=== PATIENT | male | born 1960 | race Caucasian/White ===

== ENCOUNTER 2025-02-15 19:07 | Inpatient (IN) | payer OTHER, SELFPAY ==
[2025-02-15] VITALS (7 sets, daily range): BP systolic 102–160; BP diastolic 68–91; BMI 28.3
--- NOTE | 2025-02-15 16:27 | ED.GENMED ---
History of Present Illness
General
Chief Complaint: Chest Pain
Time Seen by Provider: 02/15/25 16:16
History of Present Illness
History of Present Illness:
FOCUSED PAST MEDICAL HISTORY
- Diabetes
REVIEW OF OLD RECORDS
- The patient was seen here in 2020 with a splinter
Note:
CHIEF COMPLAINT(S)
Chest pain.
HISTORY OF PRESENT ILLNESS
The patient is a 64-year-old male who presents with chest pain that began around 10:00 AM today. He describes the sensation as feeling like 'someone is sitting on' his chest. The chest pain has been continuous since its onset. He reports associated
pain in the back of his shoulder but denies previous episodes related to cardiac issues. He did not take aspirin at home but did take Tylenol. The patient is being assessed for a potential myocardial infarction, as indicated by findings on the
electrocardiogram. The ripening room hand has been notified. The patient did take an antacid but remains symptomatic at the time of evaluation.
PAST MEDICAL AND SURGICAL HISTORY
The patient reports a past surgical history of diverticulitis resulting in the resection of 12 inches of colon. The patient denies a history of hypertension or hypercholesterolemia. He acknowledges having a previous allergy to topical iodine used
during surgical preparations, which resulted in a rash on his back and chest.
CHRONIC MEDICAL CONDITIONS SIGNIFICANTLY AFFECTING CARE
The patient reports having type 2 diabetes mellitus.
ALLERGIES
The patient is allergic to topical iodine, which caused a rash on his back and chest.
FAMILY HISTORY
The patients mother had renal dialysis and but had no history of heart problems. The patients father had cancer, but there is no family history of heart problems noted.
MEDICATIONS
The patient took Tylenol at home and has been given aspirin in the emergency department.
REVIEW OF SYSTEMS
- Chest: Reports chest pain described as feeling like 'someone is sitting on' his chest.
- Gastrointestinal: Denies past issues requiring medication for hypertension or hypercholesterolemia.
- Skin: Past allergic reaction to topical iodine resulting in a rash on back and chest.
PHYSICAL EXAM
General: Alert, no acute distress. Appears fairly comfortable
Skin: Warm, dry.
Head: Normocephalic, atraumatic.
Neck: Supple, trachea midline.
Eyes, Ears, Nose, Mouth, and Throat: Oral mucosa moist.
Cardiovascular: Normal peripheral perfusion, No edema.
Respiratory: Respirations are non-labored.
Gastrointestinal: Abdomen nondistended.
Back: Normal range of motion, Normal alignment.
Musculoskeletal: Normal range of motion, normal strength.
Neurological: Alert and oriented to person, place, time, and situation. No focal neurological deficit observed.
Psychiatric: Cooperative, appropriate mood & affect.
PLAN
The patient is placed on aspirin therapy for suspected myocardial infarction and is awaiting evaluation by the cardiology team for further management in the catheterization laboratory. Continuous monitoring and preparation for possible intervention
are underway.
DIFFERENTIAL DIAGNOSIS
The Differential Diagnosis includes, in no particular order and is not limited to:
1. Myocardial infarction
2. Angina pectoris
3. Aortic dissection
4. Pulmonary embolism
5. Costochondritis
6. Gastroesophageal reflux disease
7. Pericarditis
8. Thoracic aortic aneurysm
9. Pneumothorax
10. Musculoskeletal pain
Disposition:
SUMMARY OF ENCOUNTER
The patient, a 64-year-old male, presents with chest pain characterized as a sensation of someone sitting on his chest, starting earlier the same day. The pain is continuous and associated with shoulder discomfort. The emergency department
assessment included consideration of a myocardial infarction given electrocardiographic findings. The cardiology team has been notified, and a ripening room hand is en route for further evaluation, possibly in the catheterization lab. The patient remains
symptomatic despite taking Tylenol.
ASSESSMENT
Acute anterior ST elevation myocardial infarction suspected.
EMERGENCY TREATMENTS ADMINISTERED
Aspirin
MANAGEMENT OF THE PATIENTS CARE WAS DISCUSSED WITH
The ripening room hand Dr. Jenkins is coordinating management for possible intervention in the catheterization laboratory.
PLAN
Continue aspirin therapy and prepare for possible intervention in the catheterization laboratory pending cardiology evaluation.
MEDICATION RECONCILIATION
Aspirin was administered in the emergency department.
MEDICAL DECISION MAKING
-Complexity of Data Reviewed: Chronic conditions affecting care include type 2 diabetes mellitus. Differential diagnosis includes myocardial infarction, angina pectoris, aortic dissection, pulmonary embolism, costochondritis, gastroesophageal reflux
disease, pericarditis, thoracic aortic aneurysm, pneumothorax, and musculoskeletal pain.
-Data:
Category 3
Discussion of management with a ripening room hand who is en route for further evaluation.
-Risk:
Consideration of Admission/Observation: Escalation of care including admission/observation was considered given the complexity and risk of the patients presenting complaint, exam findings, and underlying comorbidities.
DIAGNOSIS
Acute anterior ST elevation myocardial infarction (ICD-10: I21.09)
EKG
- Sinus, anterior ST elevation with no reciprocal changes
LABS
- White count 12.5, troponin still pending
UPDATE
- Dr. Jenkins took to the [facility] emergently
Past History
Past History
ED Past Medical History: None
ED Past Surgical History: None
Social History
Tobacco: Non-smoker
Alcohol: None
Phy Exam
Physical Exam
Physical Exam:
See HPI
Scores
Heart Score for Chest Pain Patients
STEMI patient?: Yes
Course
Orders/Labs/Results
Orders:
Orders
02/15/25 15:56
Electrocardiogram (*1) Urgent
Reason for Study: Chest Pain
EKG- Treatment ONCE
02/15/25 16:23
Type+Screen Urgent
Complete Blood Count/With Diff Urgent
Comprehensive Metabolic Panel Urgent
Magnesium Urgent
Protime/PTT Urgent
Troponin I Urgent
Troponin I Urgent
Heparin 5,000 units IV NOW STA
Nitroglycerin Sublingual [Nitrostat (Sublingual)] 0.4 mg SL [id number] PRN
02/15/25 16:30
Nitroglycerin 100 mg/250 ml [Nitroglycerin Premix] 100 mg in 250 ml IV PER PROTOCOL
Initial dose in mcg/min, then titrate:: 5
Titrate to keep:: Chest Pain Free
Titrate by mcg/min:: 5 mcg/min, may increase by 10 mcg/min if dose > 20 mcg/min
Frequency of titrations (minutes):: every 3-5 minutes
Maximum dose in mcg/min:: 200
Begin to taper infusion when:: Remained at goal for 2hrs
Taper by mcg/min:: 5 mcg/min
Frequency of taper (minutes) if patient maintains goal:: 30
Taper to off?: Yes
If infusion off & no longer maintaining goal:: Contact Provider
02/15/25 16:36
Fentanyl Citrate/Pf [Sublimaze] 100 mcg .ROUTE .STK-MED ONE
Heparin 10,000 units .ROUTE .STK-MED ONE
Heparin 1000 Units/500 ml [Heparin] 1,000 units in 500 ml .ROUTE .STK-MED
Heparin Sodium,Porcine/Ns/Pf [Heparin 2000 Units/1000 ml] 2,000 unit in 1,000 ml .ROUTE .STK-MED
Lidocaine HCl/Pf [Xylocaine-Mpf 1% Vial] 100 mg .ROUTE .STK-MED ONE
Midazolam HCl [Versed] 2 mg .ROUTE .STK-MED ONE
Nitroglycerin [Tridil] 1,500 mcg .ROUTE .STK-MED ONE
Verapamil Injectable [Isoptin/Verapamil Injection] 5 mg .ROUTE .STK-MED ONE
02/15/25 16:57
Aspirin Chewable [Low Strength Aspirin] 324 mg .ROUTE .STK-MED ONE
Ticagrelor [Brilinta] 180 mg .ROUTE .STK-MED ONE
02/15/25 17:23
Furosemide [Lasix] 40 mg .ROUTE .STK-MED ONE
02/15/25 17:24
Lidocaine 2% Mpf [Xylocaine Mpf 2%] 100 mg .ROUTE .STK-MED ONE
Lidocaine HCl/Pf [Xylocaine-Mpf 1% Vial] 50 mg .ROUTE .STK-MED ONE
Abnormal Lab Results
02/15/25
16:23
WBC 12.5 H 10^3/uL
(4.8-10.8)
MCH 31.3 H pg
(27.0-31.0)
Absolute Neuts (auto) 9.1 H 10^3/uL
(1.4-6.5)
Absolute Monos (auto) 0.9 H 10^3/uL
(0.1-0.6)
Lymphocytes % 19.5 L %
(20.5-51.1)
Glucose 274 H mg/dl
(70-99)
Total Protein 8.3 H g/dl
(6.3-8.2)
02/15/25 16:23
02/15/25 16:23
Vital Signs
Initial and Last Documented VS:
Initial Vital Signs
Temp Pulse Resp Pulse Ox
37.1 C 90 18 98
02/15/25 16:10 02/15/25 16:10 02/15/25 16:10 02/15/25 16:10
Last Documented Vital Signs
Temp Pulse Resp BP Pulse Ox
37.1 C 90 18 160/91 98
02/15/25 16:10 02/15/25 16:10 02/15/25 16:10 02/15/25 16:14 02/15/25 16:52
*Pulse Oximetry
SaO2: 98
Oxygen Mode of Delivery: Room air
Patient hypoxic: no
*Critical Care Note
Total Time (30-74mins, 75-104mins- exclusive of procedures): Not Applicable
ED Attending Note
-
Portions of this chart may have been created with voice recognition software.� Occasional wrong word or��sound alike� substitutions may have occurred due to the inherent limitations of voice recognition software.
Discharge Plan
Departure
Patient Disposition: Admit
Date of Disposition: 02/15/25
Time of Disposition: 16:26
Presentation/result/management discussed w/ accepting MD/DO: dr jenkins
Discharge Problem:
ST elevation (STEMI) myocardial infarction involving left anterior descending coronary artery
Prescriptions:
No Action
hydrocodone-acetaminophen 1 TABLET tablet
1 tab PO Q4HPRN PRN (Reason: pain) Qty: 10 0RF
Referrals:
UNKNOWN - PT NOT,INTERVIEWE [Unknown Provider]
Interventions
Interventions:
*Risk Screen - Suicide Last Done: 02/15/25 17:02
*General Assessment Last Done: 02/15/25 17:02
*Neglect/Abuse Screening Last Done: 02/15/25 17:02
*ED- Fall Risk Assessment Last Done: 02/15/25 17:02
*ED COVID-19 Vaccine History Last Done: 02/15/25 17:02
*ED Influenza Vaccine History Last Done: 02/15/25 17:02
*Nursing Disposition Last Done: 02/15/25 17:02
ED- Cardiac Assessment Last Done: 02/15/25 16:10
Discharge Date and Time
Discharge Date/Time: 02/15/25 17:04
Print Language: MOROCCAN
[2025-02-15] MEDS: NITROGLYCERIN PREMIX 250 IV (16:31)
[2025-02-15 16:43] LABS: Hematocrit 45.5 % (39.0-52.0); Hemoglobin 16.0 g/dL (13.0-18.0); Mean Corp Hgb Conc. 35.2 g/dL (33.0-37.0); Mean Corpuscular Volume 88.9 fL (80.0-94.0); Nucleated Red Blood Cells % 0 % (-); Platelet Count 237 10^3/uL (130-400); Red Cell Dist. Width 12.4 % (11.5-14.5)
[2025-02-15 16:47] LABS: INR 1.05; PT 14.0 Sec (11.4-14.6)
[2025-02-15 16:48] LABS: APTT 27.8 Sec (23.4-35.0)
[2025-02-15 16:53] LABS: ALT (SGPT) 21 U/L (0-50); AST (SGOT) 40 U/L (17-59); Albumin 4.9 g/dl (3.5-5.0); Alkaline Phosphatase 108 U/L (38-126); Blood Urea Nitrogen 18 mg/dl (9-20); Calcium 10.0 mg/dl (8.4-10.2); Carbon Dioxide 25 mmol/L (22-30); Chloride 99 mmol/L (98-107); Estimated Creatinine Clearance 113 ml/min; Glucose 274 mg/dl (70-99); Magnesium 1.8 mg/dl (1.6-2.3); Potassium 4.8 mmol/L (3.5-5.1); Sodium 135 mmol/L (135-145); Total Protein 8.3 g/dl (6.3-8.2); eGFR > 60.00
[2025-02-15 17:47] LABS: Troponin I 1.400 ng/ml
[2025-02-15 18:00] LABS: ACT-LR - POC 213 Seconds (116-155)
--- NOTE | 2025-02-15 18:15 | CONSULT.CT ---
Consultation
-
Date/Time Consultation Performed: 02/15/251814
Requesting Provider: Amara Barriga MD
Performing Provider: Gildardo De Oliveira PA-C
Reason for Consultation: STEMI, MVCAD, Eval for urgent CABG
Patient History
Physicians
Inpatient Marine Rigger: Amara Barriga MD
History of Present Illness
The patient is a 64 year old male who presented to the emergency department with continuous chest pressure and an acute anterolateral STEMI. He was taken urgently to the cardiac cath technologist by Dr. Barriga for LHC. This revealed multivessel CAD with PICKLER HELPER RCA, LAD
& distal LCX. Medical therapy with heparin, IV nitro and ticagrelor (180 mg load). An IABP was placed. We were called for urgent CABG evaluation.
Past Medical History
Past Medical History: HTN, Hypercholesterolemia and NIDDM
Past Surgical History
Partial colectomy secondary to diverticulitis
Family History
Family Medical History: Other (noncontributory. No known heart disease in his direct family members)
Social History
Alcohol: None
Drug: None
Tobacco: Non-Smoker
Allergies
Allergy/AdvReac Type Severity Reaction Status Date / Time
iodine Allergy Intermediate Itching Verified 02/15/25 16:13
NKA - No Known Allergies Allergy Unknown Uncoded 10/19/20 18:03
Home Medications
�Medication �Instructions �Recorded �Confirmed �Type
hydrocodone 5 mg-acetaminophen 325 1 tab PO Q4HPRN PRN pain #10 tabs 05/27/16 Rx
mg tablet
Review of Systems
-
Unable to obtain full review of systems at this time due to: Acuity
History Source: Patient and Physician
Cardiac: Reports Chest Pain
Physical Exam
Vital Signs
Temp 98.7 F 02/15/25 16:10
Temp route: Oral 02/15/25 16:10
Pulse 90 11/01/25 16:10
Resp Rate 18 02/15/25 16:10
Blood pressure 160/91 02/15/25 16:14
Blood pressure extremity used: Right upper arm 02/15/25 16:10
Position: Sitting 02/15/25 16:10
MAP 112 02/15/25 16:14
SaO2 98 02/15/25 16:52
Oxygen Mode of Delivery Room air 02/15/25 16:52
Actual Weight 102.6 kg 02/15/25 16:10
Body Mass Index (BMI) 28.3 02/15/25 16:10
Labs
PT 14.0 Sec (11.4-14.6) 02/15/25 16:23
APTT 27.8 Sec (23.4-35.0) 02/15/25 16:23
Troponin I 1.400 ng/ml H* 02/15/25 16:23
Troponin I Cancelled 02/15/25 16:23
Troponin I Cancelled 02/15/25 16:23
Exam
General: Well Developed, Well Nourished and Other (in distress on the cardiac cath technologist table)
HEENT: Normocephalic
Rectal: Deferred by Provider
Skin: Warm and Dry
Neuro: Awake, Alert and Oriented
Psych: Calm
Assessment / Plan
-
1. STEMI, MVCAD: the patient will be admitted to CVICU for further management. CABG workup will be done urgently. Due to the ticagrelor load, acute STEMI with significant troponinemia & potential for perioperative complications in the acute setting,
we will attempt to maximize non surgical therapy in an attempt to minimize perioperative risk. The patient was evaluated in tandem with Dr. Fine. STAT Echo, EKG, labs, etc. all ordered. We will provide maximal GDMT for CAD with ASA/high intensity
statin/BB
2. HTN
3. HLD
4. T2DM
5. Hx of partial colectomy/diverticulitis
Note: this note was conducted during urgent cardiac cath technologist evaluation. More extensive physical exam and reconciliation of his chronic medical conditions will be done once he is fully admitted.
Data Reviewed
-
EKG: Report Reviewed by me
General Dentist: Image Personally Visualized and interpreted and Discussed with Physician
Labs: Labs Reviewed by me
Old Records: Reviewed
Total Time Spent with Patient (in minutes): 60
[2025-02-15 18:22] LABS: ACT-LR - POC 250 Seconds (116-155)
--- NOTE | 2025-02-15 19:01 | CON.CAR ---
Addendum entered and electronically signed by Amara Barriga MD 02/16/25 00:39:
Please utilize this note as presenting history and physical.
Home medication noted by patient metformin which she has not been taking for the last 6months
My total direct critical care time was 84 minutes. The time documented was spent providing direct care to this critically ill patient and does not include any time for the procedures. Furthermore in calculating this total time I been careful to
only include the minimum time during which I personally was providing the critical care services listed to this patient. Critical time includes shock management, pressor management, respiratory status management, heart team, family and patient
discussion, ECG and echocardiogram and lab review.
Amara Barriga MD, [facility], [facility]
Original Note:
Consultation
Consultation Request
Date/Time Consultation Requested: 02/15/2025
Date/Time Consultation Performed: 02/15/2025
Requesting Provider: [facility]
Performing Provider: Amara Barriga Md
Reason for Consultation: CP
Medical History
-
Chief Complaint: Chest Pain
History of Present Illness:
Dequan is a 64-year-old gentleman with past medical history of non-insulin dependent type 2 diabetes mellitus, not on any medications for the last 6 months, family history of premature coronary artery disease in his brother, non-smoker with no
follow-up over the last year or recent lab work who presents with sudden onset substernal chest pressure like something is sitting on his chest since about 10 AM. He initially felt like it was indigestion and he tried multiple maneuvers and
stretching with no relief. Eventually asked his landlord to bring him into the hospital in the setting of ongoing chest discomfort with some shortness of breath. In the emergency room the initial ECG was concerning for anterolateral ST elevation
AR for which the heart catheterization team was urgently called. Patient was hypertensive for which he was given 2 sublingual nitroglycerin and started on nitroglycerin drip. He received 325 mg of aspirin, 180 mg of Brilinta and 5000 units of
unfractionated IV heparin.
Past Medical History
Past Medical History: CAD, HTN and NIDDM
Past Surgical History: Bowel Resection and Orthopedic
Social History
Tobacco: Non-Smoker
Alcohol: Occasional
Drug: None
Personal: Single
Living: Alone
Employment: Retired
Family History
Family History: Early CAD
Allergies / Home Medications
Allergy/AdvReac Type Severity Reaction Status Date / Time
iodine Allergy Intermediate Itching Verified 02/15/25 16:13
NKA - No Known Allergies Allergy Unknown Uncoded 10/19/20 18:03
�Medication �Instructions �Recorded �Confirmed �Type
hydrocodone 5 mg-acetaminophen 325 1 tab PO Q4HPRN PRN pain #10 tabs 05/27/16 Rx
mg tablet
Review of Systems
-
All other systems: Negative unless noted
Physical Exam
Vital Signs
Temp Pulse Resp BP Pulse Ox
98.7 F 90 18 160/91 98
02/15/25 16:10 02/15/25 16:10 02/15/25 16:10 02/15/25 16:14 02/15/25 16:52
Lab Results
Troponin I 1.400 ng/ml H* 02/15/25 16:23
Troponin I Cancelled 02/15/25 16:23
Troponin I Cancelled 02/15/25 16:23
Physical Exam
General: Well Developed, Well Nourished and Pain
HEENT: Moist Mucous Membranes
Respiratory: Non Labored Respirations; Negative Wheezes, Rhonchi or Accessory Resp Muscle Use
Cardiac: S1/S2, Regular Rhythm, JVD and Carotid Pulses; Negative Murmur, Peripheral Edema or HJR
Breast: Deferred by me
GI: Soft, Non Tender, Non Distended and Normal Bowel Sounds
Musculoskeletal: No Clubbing, No Cyanosis and No Edema
Skin: Warm and Dry
Neuro: AO x 3
Psych: Calm
Impression / Plan
-
Dequan is a 64-year-old overweight gentleman with past medical history of [id number] type 2 diabetes mellitus, not on any medications over the last 6 months, hypertension, family history of premature coronary artery disease, no medical
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
AR with multivessel coronary artery disease by heart catheterization
Acute coronary syndrome
-Daily baby aspirin, high intensity statin, beta-robyn, nitroglycerin drip and IABP with one-to-one support. Hold off on any further ticagrelor.
- Echocardiogram stat bedside and the heart catheterization labs showing an LVEF of 40 to 45% with hypokinesis of mid to apical anterior, anterolateral and anteroseptal tidwell consistent with LAD territory ischemia.
- Extensive discussion with cardiac surgeon, Dr. Heather Fine, regarding the patient's condition, presentation and findings. Dr. Fine has also evaluated the patient personally in the heart catheterization lab (please see her note for further
details).
- I started him urgently on a nitroglycerin drip initially for chest pain and then further uptitrated for blood pressure control with goal blood pressure of mean arterial pressure 65-70.
- We will be supporting him with one-to-one support on IABP to improve coronary flow. We will follow augmented pressures and mean arterial pressures via the IABP closely.
- We discussed urgent findings with ECG showing improved persistent ST changes and overall resolution of chest pain that he presented with on nitroglycerin drip and IABP support to improve coronary perfusion.
- For now after extensive discussion with CT surgery the plan is for close monitoring in the CVICU with every 6 troponins and ECG with ongoing consideration of urgent coronary artery bypass grafting.
- Lab work to evaluate for secondary cardiovascular risk factors and aggressive management of type 2 diabetes mellitus.
I also had extensive discussion with his daughter who will be coming in and explained all of the above to her.
Amara Barriga MD, FAC, [facility]
Data Reviewed
-
EKG: Tracing Personally Visualized and interpreted
Radiology: Image Personally Visualized and interpreted
Medical Tests (Nuc Med, Echo etc): Image Personally Visualized and interpreted
Labs: Labs Reviewed by me
Critical Care Time (in minutes): 84
--- NOTE | 2025-02-15 19:12 | ITS.CL.CATH ---
Detention Deputy - Catheterization
Cardiac Catheterization
Procedure Report:
LEFT HEART CATHETERIZATION AND IABP PLACEMENT
Date of Procedure: February 15, 2025
Referring: [place] emergency department
PROCEDURES:
1. Left heart catheterization, coronary angiogram.
2. Moderate sedation.
3. Intra-aortic balloon pump placement
4. Placement of radial arterial line.
INDICATION: Anterolateral ST elevation NM
ACCESS: Right radial artery, 6Fr. sheath, under US guidance.
HEMODYNAMICS : (mmHg)
AO (s/d) : 157/96
LVEDP : 23
No significant gradient across the aortic valve to suggest aortic stenosis.
CORONARY FINDINGS
Dominance: Right
Left Main Trunk (LMT): Large caliber vessel that gives rise to the LAD, ramus intermedius and LCx branches. There is mild diffuse atherosclerotic plaque.
Left Anterior Descending Artery (LAD): Large caliber vessel that gives off 2 major diagonal branches as it courses along the anterior inter-ventricular groove before wrapping around the cardiac apex. There is diffuse moderate to severe disease in
the LAD from the proximal to midportion with tandem severe lesions up to 80 to 90% and PRAVEENA II flow into the apical LAD. D1 is a medium caliber vessel with 100% chronic total occlusion in the proximal portion with left to left collaterals.
Ramus Intermedius: The ramus intermedius artery is a small to medium caliber vessel with 80 to 90% ostial to proximal stenosis.
Left Circumflex Artery (LCx): Large caliber vessel that gives off 2 major obtuse marginal (OM) branches as it courses along the atrio-ventricular (AV) groove. There is a long area of diffuse moderate to severe plaque in the mid left circumflex
extending into both the OM branches up to 80 to 90%.
Right Coronary Artery (RCA): Large caliber dominant vessel that gives rise to the posterior descending artery (RPDA) and postero-lateral ventricular (RPLV) branches distally. There is 100% chronic total occlusion in the mid RCA with robust
[id number] collaterals.
SEDATION: 67 minutes of procedural sedation was utilized. IV Midazolam and IV Fentanyl were administered. An independent medical receptionist medical assistant was present to assist with and help manage the patient's level of consciousness and physiologic status.
Radial arterial line: We placed a wire through our radial sheath and advanced a single-lumen catheter after taking out a 6 [place] sheath to serve as an arterial line which was sutured and secured in place.
Closure Device: There were no immediate intra-procedural complications. The sheath was pulled in the laborer drying department and a vascular-band applied to the right wrist for radial artery hemostasis using the patent hemostasis technique.
CONCLUSIONS
1. Severe multivessel coronary artery disease which includes disease that involves the ostium of the LAD and the ramus, diffuse proximal to distal LAD disease, severe LCx disease, and RCA chronic total occlusions. In particular, the ECG findings
would correlate with the LAD territory that is a poor PCI target due to the severe diffuse disease of the vessel including the ostium of the vessel, with a neighboring significant ramus with ostial disease. The LAD territory is seen to have PRAVEENA II
flow with collateralization of the apical LAD.
2. LVEDP of 23 mmHg. Patient received 20 mg of IV furosemide during the case.
RECOMMENDATIONS/DISCUSSIONS/PLAN
1. Wean radial band per protocol. Monitor right hand perfusion and for bleeding from the radial site following removal of the vascular-band following trans-radial access.
2. Continue aggressive medical therapy and risk factor modification for secondary CAD prevention.
3. I had an extensive discussion with the cardiac surgeon (Dr. Heather Fine) regarding the patient's condition, where we reviewed the findings and implications of the severe multivessel disease and the poor options for PCI.
Following our consultation, we determined that the patient is a candidate for urgent surgical revascularization. Please refer to the note from the cardiac surgeon for a detailed account of the assessment and surgical recommendations.
4. An Intra-Aortic Balloon Pump (IABP) has been placed to assist with hemodynamic support. The patient has been initiated on a nitroglycerin infusion to alleviate ischemic symptoms and optimize coronary perfusion.
Residual ECG changes have been noted, which were discussed thoroughly with the cardiac surgeon. Continuous monitoring and further evaluations will be performed to assess the patient's response to the current management strategy.
5. Continue monitoring the patient closely in the ICU with attention to vital signs and ECG trends. Maintain IABP support and nitroglycerin infusion while evaluating for surgical intervention and timing.
6. Continued medical therapy with daily baby aspirin, high intensity statin and beta-blockers as tolerated along with IV nitroglycerin drip and one-to-one support on IABP.
7. Stat echocardiogram was performed in the heart catheterization lab bedside with Definity which showed estimated LVEF of 35-40% with hypokinesis of mid to apical anterior, anterolateral and anteroseptal tidwell without evidence of a LV thrombus.
Amara Barriga MD, FACC, [facility]
[2025-02-15 19:21] LABS: B.E. 0.1 mmol/L; HCO3 23.8 mmol/L (21-28); O2 Saturation % 98.5 % (94-98); PCO2 35 mmHg (35-48); PO2 90 mmHg (83-108)
[2025-02-15 19:29] LABS: Hematocrit 40.6 % (39.0-52.0); Hemoglobin 14.6 g/dL (13.0-18.0); Mean Corp Hgb Conc. 36.0 g/dL (33.0-37.0); Mean Corpuscular Volume 88.5 fL (80.0-94.0); Platelet Count 232 10^3/uL (130-400); Red Cell Dist. Width 12.2 % (11.5-14.5)
[2025-02-15 19:36] LABS: INR 1.18; PT 15.3 Sec (11.4-14.6)
[2025-02-15 19:44] LABS: ALT (SGPT) 28 U/L (0-50); AST (SGOT) 149 U/L (17-59); Albumin 4.4 g/dl (3.5-5.0); Alkaline Phosphatase 101 U/L (38-126); Blood Urea Nitrogen 18 mg/dl (9-20); Calcium 10.3 mg/dl (8.4-10.2); Carbon Dioxide 23 mmol/L (22-30); Chloride 100 mmol/L (98-107); Estimated Creatinine Clearance > 125 ml/min; Glucose 279 mg/dl (70-99); Potassium 4.5 mmol/L (3.5-5.1); Sodium 131 mmol/L (135-145); Total Protein 7.6 g/dl (6.3-8.2); eGFR > 60.00
[2025-02-15] MEDS: HEPARIN 25000 UNITS/250 ML IV (19:48)
[2025-02-15 19:53] LABS: APTT > 200 Sec (23.4-35.0)
[2025-02-15 21:02] LABS: APTT 70.2 Sec (23.4-35.0)
--- NOTE | 2025-02-15 21:25 | PTCARENOTE ---
Pt admitted to CVICU from cardiac cath lab radiology technologist at 1919. Report received from Valeria. RN handoff done at bedside. Pt with R femoral artery IABP, 1:1. Both IABP and R fem a-line transduced to monitor. R radial A-line present. Transduced to monitor. TR band intact.
NTG gtt at 100 mcg/min. Keeping MAP > 65. Titrating according to CP. No c/o CP on admit to CVICU. Pt awake, alert. Oriented x 4. Speech clear. Equal extremity strength x 4. On room air. Sat 97% to R hand. BBS present. Decreased to B bases. CDB
encouraged. Belly soft, obese, nontender. Hypoactive bs x 4. Pt able to void 650 mls clear, yellow urine in urinal. EKG done. Labs drawn and sent. Initial PTT > 200. Reported to PEDRO Branch. Waited 1 hour, redrew PTT. Repeat PTT 70.2. Heparin gtt up at
2117 at 1000 units/hr.
At 2004, pt c/o 3-4 / 10 chest tightness. NTG gtt titrated to 110 mcg/min. At 2011, pt still c/o chest tightness. NTG gtt titrated to 120 mcg/min. HOSPITAL COORDINATOR notified.
At ~ 2100, pt c/o intermittent dizziness, nausea, and indigestion. HOSPITAL COORDINATOR notified. Zofran 4 mg IV given. Protonix 40 mg IV given. Pt reports + relief of nausea and indigestion.
Daughter at bedside. Updated on pt status.
[2025-02-15] MEDS: ZOFRAN 4 MG IV (21:48)
[2025-02-15 22:14] LABS: Glucose - Point of Care 287 mg/dl (70-99)
[2025-02-15] MEDS: PROTONIX IV 40 MG IV (22:33)
[2025-02-15] MEDS: NSS (PRESERVATIVE FREE) 10 ML IV (22:33)
[2025-02-15 23:02] LABS: Troponin I 90.900 ng/ml
--- NOTE | 2025-02-15 23:30 | PTCARENOTE ---
Troponin drawn at 0, followed by EKG. Shown to FIRMWARE ARCHITECT. Troponin 90.9. Lactic acid drawn. Pt states that chest tightness was intermittent and currently, the chest tightness, nausea, and indigestion have resolved. CHG bath done. NTG gtt remains at 120
mcg/min. Keeping MAP > 65. See VA. IABP 1:1. Attempted to withdrawn 3 mls air from R radial TR band at 2044, yet pt bleeding. 3 mls air reinserted. At 2229, 3 mls air out. Watching bloody drainage. 2L/NC applied to pt with first incident of CP. Sat
96-98%. No c/o dyspnea. Pt remains in SR. Ongoing plan of care.
[2025-02-16] VITALS (21 sets, daily range): BP systolic 87–125; BP diastolic 59–92; BMI 30.3
--- NOTE | 2025-02-16 00:39 | W.PN.UPDATE ---
Update Note
Progress Note Update
Interventional Cardiology Update note
Updated by CT surgery PA regarding patient around 11 PM. Patient reporting ongoing ' indigestion', at times over the epigastrium, other times over the sternum ranging anywhere from 1-3 on a pain scale. His nitroglycerin has been uptitrated to 120
mcg and IABP is still ongoing of one-to-one support.
Patient had complained of some nausea which resolved with Zofran. Repeat troponin resulted at 90.9. Repeat ECG with persistent anterolateral ST elevations and Q waves.
I called and had another extensive discussion with Dr. Heather Fine expressing my ongoing concerns about persistent ischemia with patient not being symptom-free with ECG concerning with its persistent ST elevations to discuss consideration for urgent
coronary artery bypass grafting however there is extensive concern from CT surgery standpoint about high morbidity and mortality associated with urgent CABG in a patient with ST elevation CA.
In the setting I had discussion with my senior interventional partner, Dr. Yordan Grey who reviewed the films along with Dr. Macho Farr and given all of the concerns above and a 64-year-old gentleman with persistent symptoms and EKG changes as
noted above concerning for ongoing ischemia, we discussed bringing the patient back to the heart catheterization lab with plan to PCI the LAD.
I did reach out to Dr. Luis Patel to discuss all of the above as well to obtain a second surgical opinion however I was not able to reach him. I rediscussed with Dr. Fine regarding all of the above and evaluated the patient bedside discussing
all of the concerns above with him reviewing the risk and benefits of repeat heart catheterization and PCI. All of his questions and concerns were answered. Patient is agreeable to move forward with PCI.
Discussed with nursing at bedside and tried to call his daughter, Carly to update regarding all of the above however was not able to reach her and left a voicemail. Will attempt calling her back again later
Amara Barriga MD, [facility], [facility]
Total critical care time: 31 minutes
--- NOTE | 2025-02-16 00:40 | PTCARENOTE ---
Dr. Barriga at bedside with pt to discuss returning to bottle labeler for procedure. Consent signed by pt. Report given to oil laboratory analyst RNValeria. oil laboratory analyst RNs x 3 at bedside to transport pt at 0040. Pt remains in SR. Heparin gtt at 1000 units/hr. NTG gtt at
120 mcg/min. Pt without CP, indigestion or nausea at present time. Dr. Barriga to call daughter about pt's procedure.
--- NOTE | 2025-02-16 00:57 | ITS.CL.CATH ---
Fibrous Wallboard Inspector - Catheterization
Cardiac Catheterization
Procedure Report:
CORONARY INTERVENTION
Date of Procedure: February 16, 2025
Referring: Heather Fine MD
PROCEDURES:
1. Selective coronary angiogram
2. Moderate sedation.
3. Successful percutaneous coronary artery intervention of ostial to mid LAD with 4 overlapping drug-eluting stents (2.25 x 30, 2.5 x 30, 3.0 x 30, 3.0 x 26 mm Medtronic Darius frontier stent) postdilated with 2.25 mm NC balloon distally and 3.5 mm
NC balloon proximally at high pressures with an excellent angiographic and IVUS based result.
4. Intravascular ultrasound (IVUS)
INDICATION: Persistent symptoms with ECG showing persistent ST elevations in anterolateral leads concerning for ongoing ischemia with troponin increasing from 1.4 to 90.9 after patient was deemed too high risk for urgent CABG by CT surgery (please
see IC update note for further details).
ACCESS: Right radial artery, 6Fr. sheath, under US guidance.
HEMODYNAMICS : (mmHg)
AO (s/d) : 124/78
CORONARY FINDINGS
Dominance: Right
Left Main Trunk (LMT): Large caliber vessel that gives rise to the LAD, ramus intermedius and LCx branches. There is mild diffuse atherosclerotic plaque.
Left Anterior Descending Artery (LAD): Large caliber vessel that gives off 2 major diagonal branches as it courses along the anterior inter-ventricular groove before wrapping around the cardiac apex. There is diffuse moderate to severe disease in
the LAD from the ostial to mid portion with tandem severe lesions up to 80 to 90% and PRAVEENA II flow into the apical LAD. D1 is a medium caliber vessel with 100% chronic total occlusion in the proximal portion with left to left collaterals.
Ramus Intermedius: The ramus intermedius artery is a small to medium caliber vessel with 80 to 90% ostial to proximal stenosis.
Left Circumflex Artery (LCx): Large caliber vessel that gives off 2 major obtuse marginal (OM) branches as it courses along the atrio-ventricular (AV) groove. There is a long area of diffuse moderate to severe plaque in the mid left circumflex
extending into both the OM branches up to 80 to 90%.
CORONARY INTERVENTION: The left coronary artery was selectively engaged using a 6 [place] EBU 3.5 guide catheter. Additional heparin was given to maintain a therapeutic ACT throughout the case. 190 cm 0.014' run-through wire was carefully navigated
across tandem lesions throughout the LAD into the distal vessel. Right after the wire was parked in the distal LAD, no antegrade flow was noted into the LAD beyond the proximal portion (PRAVEENA 0 flow). We started predilating serially from the distal
portion with a 2 to 5 x 20 mm semicompliant balloon with full expansion. Given lack of antegrade flow, we further predilated using a 2.75 x 20 mm semicompliant balloon in the proximal portion with full expansion. We advanced a [place] Glad[place] eye
IVUS catheter which confirmed intraluminal presence of our wire and showed severe diffuse plaque throughout the vessel. Multiple rounds of vasodilators were given through the guide catheter using IC adenosine with minimal improvement in flow to
PRAVEENA I flow into the distal portion. We proceeded with stenting distally to approximately with a 2.25 x 30 mm,, followed by a 2.5 x 30 mm, followed by 3.0 x 30 mm and lastly a 3.0 x 26 mm Medtronic Darius frontier drug-eluting stents. Using IVUS
guidance we postdilated the stents with a 2.25 millimeter NC balloon at high pressures distally, 2.5 and 3.0 mm NC balloons at high pressures in the mid portions and a 3.5 mm NC balloon at high pressures ostial/proximally with an excellent
angiographic and IVUS based result. Patient tolerated the procedure well. PRAVEENA-3 flow was restored into the distal vessel at the end of the case. No acute complications.
SEDATION: 97 minutes of procedural sedation was utilized. IV Midazolam and IV Fentanyl were administered. An independent senior medical billing specialist was present to assist with and help manage the patient's level of consciousness and physiologic status.
Closure Device: There were no immediate intra-procedural complications. The sheath was pulled in the director of laboratory operations and a vascular-band applied to the right wrist for radial artery hemostasis using the patent hemostasis technique.
CONCLUSIONS
1. Successful percutaneous coronary artery intervention of ostial to mid LAD with 4 overlapping drug-eluting stents (2.25 x 30, 2.5 x 30, 3.0 x 30, 3.0 x 26 mm Medtronic Darius frontier stent) postdilated with 2.25 mm NC balloon distally and 3.5 mm NC
balloon proximally at high pressures with an excellent angiographic and IVUS based result. PRAVEENA-3 flow restored into the apical LAD.
RECOMMENDATIONS
1. Wean radial band per protocol. Monitor right hand perfusion and for bleeding from the radial site following removal of the vascular-band following trans-radial access.
2. Continue aggressive medical therapy and risk factor modification for secondary CAD prevention. Continue support with IABP at one-to-one with plan to wean later today versus tomorrow depending on clinical status. Trend troponins and ECGs. IV
heparin for IABP.
3. Continue ASA 81 mg daily for life.
4. Continue ticagrelor for at least 12 months of uninterrupted dual anti-platelet therapy given drug-eluting stent (SCOTTY) implantation to mitigate the risk of stent thrombosis. This is not to be stopped for any reason without the guidance of a
cloth shearing supervisor.
5. Hydrate with normal saline to mitigate the risk of contrast-induced acute kidney injury.
6. Referral for outpatient cardiac rehab.
7. Staged left circumflex/OM PCI in the near future likely as an outpatient. Medical management of mid RCA RN UNIT MANAGER.
Amara Barriga MD, [facility], [facility]
[2025-02-16 01:27] LABS: ACT-LR - POC 128 Seconds (116-155)
[2025-02-16 01:58] LABS: ACT-LR - POC 248 Seconds (116-155)
[2025-02-16 02:00] LABS: ACT-LR - POC 305 Seconds (116-155)
[2025-02-16 03:51] LABS: Hematocrit 38.8 % (39.0-52.0); Hemoglobin 13.1 g/dL (13.0-18.0); Mean Corp Hgb Conc. 33.8 g/dL (33.0-37.0); Mean Corpuscular Volume 92.2 fL (80.0-94.0); Platelet Count 196 10^3/uL (130-400); Red Cell Dist. Width 12.7 % (11.5-14.5)
[2025-02-16] MEDS: ZOFRAN 4 MG IV ×2 (03:54→10:19)
--- NOTE | 2025-02-16 04:05 | PTCARENOTE ---
Pt returned from labeling machine operator at 0235. Pt sleepy yet easily arouses to voice. Remains oriented x 4. No c/o CP, back pain. No c/o nausea or indigestion. IABP 1:1. NTG gtt infusing at 120 mcg/min. Goal to keep MAP >65 and CP-free. Labs drawn and sent. PTT
> 200. Will redraw PTT in 1 hour to see if Heparin gtt can be restarted. Troponin 168, Lactic acid 2.7. EKG done. All labs and EKG shown to PEDRO Branch. Pt with + green emesis at 0400. Zofran 4 mg IV given. No c/o CP or back pain. Daughter updated on
pt status via phone. Ongoing plan of care.
[2025-02-16 04:17] LABS: Blood Urea Nitrogen 20 mg/dl (9-20); Calcium 10.2 mg/dl (8.4-10.2); Carbon Dioxide 25 mmol/L (22-30); Chloride 100 mmol/L (98-107); Estimated Creatinine Clearance 113 ml/min; Glucose 295 mg/dl (70-99); HDL Cholesterol 42 mg/dl; LDL Cholesterol, Calculated 135 mg/dl; Magnesium 1.7 mg/dl (1.6-2.3); Potassium 4.9 mmol/L (3.5-5.1); Sodium 131 mmol/L (135-145); Very Low Density Lipoprotein 20 mg/dl (0-30); eGFR > 60.00
[2025-02-16 04:38] LABS: APTT > 200 Sec (23.4-35.0)
[2025-02-16 04:41] LABS: Troponin I 168.000 ng/ml
[2025-02-16] MEDS: MAGNESIUM SULFATE 50 IV (05:25)
[2025-02-16] MEDS: REGLAN 10 MG IV (05:25)
[2025-02-16] MEDS: BRILINTA 90 MG PO ×3 (05:25→20:19)
[2025-02-16 06:01] LABS: Glucose - Point of Care 315 mg/dl (70-99)
[2025-02-16] MEDS: NOVOLIN R INSULIN INFUSION 100 IV ×2 (06:02→22:02)
[2025-02-16 06:06] LABS: APTT 65.5 Sec (23.4-35.0)
[2025-02-16] MEDS: NOVOLIN R 6 UNITS IV (06:09)
[2025-02-16] MEDS: NITROGLYCERIN PREMIX 250 IV (06:39)
--- NOTE | 2025-02-16 07:15 | PTCARENOTE ---
Am labs drawn and sent. All labs reported to PEDRO Branch. Insulin gtt started this am at ~ 0610 for glycemic protocol. See flowsheets. Mg level 1.7. Repleted per order this am. PTT this am 65.5. Heparin gtt restarted at ~0630 at 1000 units/hr. + emesis
at 0515. PEDRO Branch made aware. Reglan 10 mg IV given per order. 3 mls air removed from TR band at 0635. Site without bleeding. Another 3 mls removed at 0710. Report to BE Salas. Walking rounds done. NTG gtt decreased to 110 mcg/min at 0710 for low
MAP ~63-64. Pt sleeping yet will arouse to voice. No c/o pain. Ongoing plan of care.
[2025-02-16 07:20] LABS: Glucose - Point of Care 282 mg/dl (70-99)
[2025-02-16 08:29] LABS: Glucose - Point of Care 210 mg/dl (70-99)
--- NOTE | 2025-02-16 09:09 | PTCARENOTE ---
assumed care of pt from previous shift RN, sinus rhythm on tele, pt is AAOX4, denies pain, + peripheral pulses, no edema noted. Lungs clear, pox 98% on RA. +BS, slightly nauseous. Pt voids yellow. Right femoral site w IABP (1:1) in place. Right
radial artery site stable. PIVs flush easily. Labs drawn and sent as ordered.
DRIPS: Nitro 120mcg
Heparin 1000units/hr
Insulin titrated per glycemic protocol
[2025-02-16 09:16] LABS: Glycohemoglobin (HgbA1c) 10.1 % (4.0-5.9)
[2025-02-16 09:41] LABS: Troponin I 60.500 ng/ml
[2025-02-16 09:42] LABS: Glucose - Point of Care 176 mg/dl (70-99)
[2025-02-16] MEDS: LASIX 40 MG IV (09:59)
[2025-02-16] MEDS: LOW STRENGTH ASPIRIN 81 MG PO (10:00)
[2025-02-16] MEDS: COZAAR 25 MG PO (10:00)
[2025-02-16] MEDS: ALDACTONE 25 MG PO (10:00)
[2025-02-16] MEDS: APRESOLINE 25 MG PO ×3 (10:19→20:19)
[2025-02-16 10:37] LABS: Troponin I 56.500 ng/ml
--- NOTE | 2025-02-16 10:43 | W.PN.ANS.LIN ---
Anesthesia IV & A-Line Note
IV/Arterial Line
Left Radial Arrow 20 (06/18):
Diagnosis: STEMI, cardiogenic shock
IV Line Comments: Uneventful Procedure
Allens test completed pre-procedure: Yes
A-Line Comments: Sterile technique as per standard protocol, Seldinger technique used, Ultrasound guided insertion and Biopatch applied
Funtioning A-line in situ: Yes
A-line Insertion Start Time: 10:35
A-line Insertion Stop Time: 10:40
A-line in at:: 10:40
Comments: uneventful ultrasound guided arterial line placement, left radial, at the request of Dr. Barriga
--- NOTE | 2025-02-16 10:48 | PTCARENOTE ---
CXR completed, left radial deepti placed by CT MALI. Medications administered as ordered.
[2025-02-16 10:52] LABS: Glucose - Point of Care 177 mg/dl (70-99)
[2025-02-16 12:02] LABS: APTT 39.5 Sec (23.4-35.0)
[2025-02-16] MEDS: TYLENOL 650 MG PO ×2 (12:49→22:07)
--- NOTE | 2025-02-16 13:56 | CON.HOSP ---
Addendum entered and electronically signed by Bashir Mckeon MD 02/16/25 14:37:
Attending�addendum:
I saw and evaluated the patient. I reviewed the resident�s note and agree with findings and plan as documented in the resident�s note.��patient seen and examined at bedside, patient admitted yesterday with STEMI status post cardiac cath, initially
no intervention and plan for CT surgery consult but then patient continued to have symptoms and underwent high risk cardiac cath with LAD stented x 4, status post intra-aortic balloon pump and placed in ICU, patient seen at bedside denies any chest
pain or shortness of breath, no abdominal pain, no nausea, no vomiting, no diarrhea or constipation.
Physical�exam:
GENERAL : Patient is awake, alert, oriented x3
HEENT: Nonicteric sclerae, PERRLA, EOMI. Oropharynx clear. Moist mucous membranes. Conjunctivae appear well perfused.
CHEST: Chest wall is nontender.
HEART: Regular rate and rhythm without murmurs.
LUNGS: Clear to auscultation bilaterally.
ABDOMEN: Soft, positive bowel sounds, nontender, no organomegaly.
RECTAL: Deferred.
MUSCLES/EXTREMITIES: No abnormal range of motion, no swelling.SKIN: No rash, no excessive bruising, petechiae, or purpura.
NEUROLOGIC: Cranial nerves II-XII intact without motor/sensory deficit.
�
Assessment/plan:
STEMI.
Status post cardiac cath.
First cardiac cath with multivessel disease advised CT surgery consult.
But patient continued to have symptoms
Patient underwent urgent cardiac catheter status post stent x 4 to LAD
Follows cardiology and CT surgery recommendations
Continue management in the ICU
Continue nitroglycerin drip/heparin
Uncontrolled diabetes mellitus.
Hemoglobin A1c 10.
Currently insulin drip.
Diabetic management consult
Hypertension.
Patient not taking any medications at home.
Started on losartan/carvedilol
CODE STATUS: Full code
DVT prophylaxis: Heparin
Diet: Cardiac/diabetic diet
Disposition: Continue management in the ICU
�
Total time spent on today�s encounter was 75 minutes which included time spent in counseling the patient/family regarding diagnosis and treatment plan as listed above, goals of care, and symptom management. Case was discussed with nursing staff,
specialists, and care coordinators/case management. All labs and imaging personally reviewed by me. Remainder the time spent in detailed review of previous records, lab data, imaging, and other medical provider documentation.
Original Note:
Consultation
-
Date/Time Consultation Requested: 02/16/2025 10:01AM
Date/Time Consultation Performed: 02/16/2025 10:45AM
Requesting Provider: Amara Barriga MD
Performing Provider: Ilya Carias DO (Resident); Bashir Mckeon MD
Reason for Consultation: T2DM Management
Family Physician
-
Family Physician: Jimenez Dunn DO
Chief Complaint
-
.
History of Present Illness
64-year-old male with a past medical history of type 2 diabetes mellitus (previously on metformin, but no longer taking any medication), and diverticulitis status post colonic resection who presented to the emergency department yesterday with
pressure-like chest pain that began around 6 hours prior to arrival and was continuous since onset. Pain radiated to the shoulder. After emergency department evaluation, acute anterior ST elevation myocardial infarction was suspected. He was
taken urgently to the [facility] for left heart cath which revealed multivessel CAD. Patient was started on medical therapy with heparin, IV nitro, ticagrelor and an IABP was placed. Discussions between cardiology and CT surgery for potential urgent
CABG. Upon the time of our evaluation of the patient, patient without any acute complaints.
Medical History
Past Medical History
Past Medical History: Reports NIDDM
Past Surgical History: Reports Other (Colonic resection)
Social History
Tobacco: Non-smoker
Alcohol: None
Drug: None
Allergies / Home Medications
Allergies reflects when Allergies were last updated in [facility].
Home Medications with original date entered in [facility]
Allergy/Medication List:
Allergies: Iodine�itching, otherwise NKDA.
Medications: Hydrocodone�acetaminophen 1 tab p.o. every 4 hours as needed for pain
Review of Systems
-
History Source: Patient
A 12 point Review of Systems was completed except as noted: Yes
Physical Exam
Vital Signs
Vital Signs
Temp Pulse Resp BP Pulse Ox
98.8 F 99 16 87/65 94
02/16/25 12:00 02/16/25 13:00 02/16/25 13:00 02/16/25 13:00 02/16/25 13:00
Physical Exam
General: Well Developed, Well Nourished and No Apparent Distress
HEENT: Normocephalic and Moist Mucous Membranes
Respiratory: Clear and Non Labored Respirations
Cardiac: S1/S2
GI: Soft
Musculoskeletal: No Edema
Skin: Warm
Neuro: Awake and Alert
Psych: Calm
Laboratory Results
-
Laboratory Results
02/16/25 03:41
02/16/25 03:41
PT 15.3 Sec (11.4-14.6) H 02/15/25 19:09
INR 1.18 02/15/25 19:09
APTT 39.5 Sec (23.4-35.0) H 02/16/25 11:44
pH 7.44 (7.35-7.45) 02/15/25 19:09
pCO2 35 mmHg (35-48) 02/15/25 19:09
pO2 90 mmHg (83-108) 02/15/25 19:09
HCO3 23.8 mmol/L (21-28) 02/15/25 19:09
Lactic Acid 2.5 mmol/L (0.7-2.0) H 02/16/25 11:44
Total Bilirubin 0.9 mg/dl (0.2-1.3) 02/15/25 19:09
AST 149 U/L (17-59) H 02/15/25 19:09
ALT 28 U/L (0-50) 02/15/25 19:09
Alkaline Phosphatase 101 U/L (38-126) 02/15/25 19:09
Troponin I 56.500 ng/ml H* 02/16/25 08:56
Troponin I 60.500 ng/ml H* D 02/16/25 08:56
Data Reviewed
-
Lab Data: Labs Reviewed and Discussed with Patient
Impression / Plan
-
64-year-old male with past medical history of type 2 diabetes presented with continuous chest pain found to have acute anterolateral ST elevation myocardial infarction taken to the [facility] for left heart cath that revealed multivessel CAD. Patient
was subsequently started on medical therapy with heparin, IV nitroglycerin, ticagrelor, and an IABP was placed. Patient currently being evaluated for potential CABG.
1. Acute Anterolateral STEMI
- Currently in CVICU; evaluation for potential CABG.
- Status post left heart cath with multivessel CAD.
- Medical management with heparin, IV nitroglycerin, ticagrelor
- ASA/high intensity statin/beta-robyn
- Goal MAP 65 mmHg
2. Hypertension
- Management per interventional cardiology
3. Hyperlipidemia
- High intensity statin
4. Type 2 Diabetes Mellitus
- HbA1c = 10.0
- Patient previously on metformin, has not taken in 6 months.
- Currently on insulin drip in CVICU
- Sliding scale and long-term management options upon downgrade.
- Will continue to follow
DVT PPx: Heparin
Diet: Cholesterol-lowering, low CHO
Code: Full
[2025-02-16 13:59] LABS: Glucose - Point of Care 206 mg/dl (70-99)
[2025-02-16 14:47] LABS: Troponin I 45.700 ng/ml
[2025-02-16 14:54] LABS: Glucose - Point of Care 212 mg/dl (70-99)
--- NOTE | 2025-02-16 15:17 | PTCARENOTE ---
pt taken to [facility]
--- NOTE | 2025-02-16 15:30 | W.PN.CARDCBS ---
Today's Communication / Plan
-
Dequan is a 64-year-old overweight gentleman with past medical history of nil-hasncbt-kltrgzllm type 2 diabetes mellitus, not on any medications over the last 6 months, hypertension, family history of premature coronary artery disease, no medical
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
AZ with multivessel coronary artery disease by heart catheterization.
1. Anterolateral STEMI
-Given ongoing symptoms with ECGs persistently showing ST elevations, extensive discussion was had with CT surgery last night and patient was urgently taken back to the heart catheterization lab after he was deemed high risk for urgent coronary
artery bypass grafting and underwent 4 overlapping drug-eluting stents from ostial to mid mid LAD and PRAVEENA-3 flow restored into the apical LAD.
-Uninterrupted dual antiplatelet therapy with daily baby aspirin and Brilinta 90 mg twice daily with high intensity statin, LDL goal less than 55.
-Medicine consult to help with management of diabetes. Hemoglobin A1c significantly elevated at at 10.1. Aggressive management of secondary cardiovascular risk factors.
-Aggressive IV diuresis with ongoing IABP support at one-to-one for today. IV heparin with IABP in place.
-Discussed with CT surgery PA who will help obtain a left radial arterial line for frequent lab draws.
-Lactate trend has gone from 1.5-2.7 up to 3.4 in which setting significant medication changes were made of note: Beta-robyn was held, Aldactone 25 mg was added, he had already received losartan 25 mg this morning, additionally added further IV
Lasix and hydralazine 25 mg p.o. in hopes to improve afterload to allow for improved forward flow.
-If lactate does not clear, would have a low threshold to take back to the heart catheterization lab for a right heart catheterization to assess invasive hemodynamics and make sure adequate mechanical circulatory support is being provided with no
indications to upgrade to Impella support. Would likely leave in [place]-Mahendra catheter to also help with optimization of medical therapy.
-Repeat limited TTE bedside showed marginally improved LV function. No evidence of LV thrombus.
-Troponin peaked at 168 and now downtrending. Patient is completely symptom-free.
-Continue to trend lactate and BMP until cleared.
-Continue IV nitroglycerin drip with mean blood pressure goal of 65-70 on IABP.
- Staged left circumflex/OM PCI likely as an outpatient in the near future.
Patient continues to still be critically ill needing support as noted above.
Discussed all of the above with nursing at bedside along with patient. Reached out to patient's daughter, Carly again and left a voicemail.
Amara Barriga MD, [facility], [facility]
Total critical care time 36-minutes
Impression / Plan
-
Dequan is a 64-year-old overweight gentleman with past medical history of dru-kejydje-vtodyzabe type 2 diabetes mellitus, not on any medications over the last 6 months, hypertension, family history of premature coronary artery disease, no medical
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
AZ with multivessel coronary artery disease by heart catheterization.
1. Anterolateral STEMI
-Given ongoing symptoms with ECGs persistently showing ST elevations, extensive discussion was had with CT surgery last night and patient was urgently taken back to the heart catheterization lab after he was deemed high risk for urgent coronary
artery bypass grafting and underwent 4 overlapping drug-eluting stents from ostial to mid mid LAD and PRAVEENA-3 flow restored into the apical LAD.
-Uninterrupted dual antiplatelet therapy with daily baby aspirin and Brilinta 90 mg twice daily with high intensity statin, LDL goal less than 55.
-Medicine consult to help with management of diabetes. Hemoglobin A1c significantly elevated at at 10.1. Aggressive management of secondary cardiovascular risk factors.
-Aggressive IV diuresis with ongoing IABP support at one-to-one for today. IV heparin with IABP in place.
-Discussed with CT surgery PA who will help obtain a left radial arterial line for frequent lab draws.
-Lactate trend has gone from 1.5-2.7 up to 3.4 in which setting significant medication changes were made of note: Beta-robyn was held, Aldactone 25 mg was added, he had already received losartan 25 mg this morning, additionally added further IV
Lasix and hydralazine 25 mg p.o. in hopes to improve afterload to allow for improved forward flow.
-If lactate does not clear, would have a low threshold to take back to the heart catheterization lab for a right heart catheterization to assess invasive hemodynamics and make sure adequate mechanical circulatory support is being provided with no
indications to upgrade to Impella support. Would likely leave in [place]-Mahendra catheter to also help with optimization of medical therapy.
-Repeat limited TTE bedside showed marginally improved LV function. No evidence of LV thrombus.
-Troponin peaked at 168 and now downtrending. Patient is completely symptom-free.
-Continue to trend lactate and BMP until cleared.
-Continue IV nitroglycerin drip with mean blood pressure goal of 65-70 on IABP.
Patient continues to still be critically ill needing support as noted above.
Discussed all of the above with nursing at bedside along with patient. Reached out to patient's daughter, Carly again and left a voicemail.
Amara Barriga MD, [facility], [facility]
Total critical care time 36-minutes
Progress Note - Environmental Aid
Subjective
Date of Service: February 16, 2025
Overnight patient became completely symptom-free. No indigestion feeling or chest discomfort.
Objective
Labs:
02/16/25 03:41
02/16/25 03:41
Labs
Hgb 13.1 g/dL (13.0-18.0) 02/16/25 03:41
Hct 38.8 % (39.0-52.0) L 02/16/25 03:41
Plt Count 196 10^3/uL (130-400) 02/16/25 03:41
PT 15.3 Sec (11.4-14.6) H 02/15/25 19:09
INR 1.18 02/15/25 19:09
APTT 39.5 Sec (23.4-35.0) H 02/16/25 11:44
Sodium 131 mmol/L (135-145) L 02/16/25 03:41
Potassium 4.9 mmol/L (3.5-5.1) 02/16/25 03:41
BUN 20 mg/dl (9-20) 02/16/25 03:41
Creatinine 0.8 mg/dL (0.7-1.3) 02/16/25 03:41
Glucose 295 mg/dl (70-99) H 02/16/25 03:41
Troponins
02/15/25 02/15/25 02/15/25
16:23 16:23 16:23
Troponin I 1.400 H* Cancelled Cancelled
02/15/25 02/16/25 02/16/25
22:00 03:41 03:41
Troponin I 90.900 H* D 168.000 H* D Cancelled
02/16/25 02/16/25 02/16/25
08:56 08:56 13:57
Troponin I 60.500 H* D 56.500 H* 45.700 H*
Vital Signs and I&O:
Vital Signs
Temp Pulse Resp BP Pulse Ox
99 F 117 16 97/68 95
02/16/25 15:00 02/16/25 15:00 02/16/25 15:00 02/16/25 15:00 02/16/25 15:00
Vital Signs
Temp Pulse Resp BP Pulse Ox
99 F 117 16 97/68 95
02/16/25 15:00 02/16/25 15:00 02/16/25 15:00 02/16/25 15:00 02/16/25 15:00
Intake & Output
02/14/25 02/15/25 02/16/25 02/17/25
06:59 06:59 05:59 06:59
Intake Total 285.06 / 321.06 325.0 / 325.0
Output Total 1500 / 1500 900 / 900
Balance -1214.94 / -1178.94 -575.0 / -575.0
Physical Exam
Physical Exam
Awake, alert, oriented x 3
Tachycardic, normal S1 and S2, no murmurs, rubs or gallops
IABP in place via right common femoral artery at one-to-one
Lungs are clear to auscultation anteriorly.
Elevated JVD
Abdomen soft, nontender, nondistended with active bowel sounds
Right radial access site with dressing in place which is clean, dry and intact without evidence of hematoma or bruit
Left radial arterial line is in place.
Warm extremities without significant edema.
--- NOTE | 2025-02-16 15:38 | ITS.CL.CATH ---
Material Control Associate - Catheterization
Cardiac Catheterization
Procedure Report:
RIGHT HEART CATHETERIZATION AND IABP REMOVAL
Date of Procedure: February 16, 2025
Referring: Amara Barriga MD, [facility], [facility]
INDICATION: Assess invasive hemodynamics in the setting of ongoing cardiogenic shock.
Hemodynamics (mmHg):
RA (m) : 9
RV (s/d,m) :23, 10
PA (s/d, m) : , 17
PCWP (m) : 12
PA saturation: 70.5% on room air
AO saturation: 93.6% on room air
RA saturation: 66.2% on room air
Aortic pressure: 107/63, MAP of 80
Heart rate of 105 bpm
Cardiac Output : 6.7 from L/min by Jean-Pierre calculation
Cardiac Index : 3.02 L/min/m-2 by Jean-Pierre calculation
Cardiac Output : 6.23 from L/min by Thermodilution
Cardiac Index : 2.79 L/min/m-2 by Thermodilution
Systemic vascular resistance: 878 dsc^(-5)
IABP weaned down at 1:3 support
PCWP (m) : 14
PA saturation: 67.3% on room air
Cardiac Output : 5.92 from L/min by Jean-Pierre calculation
Cardiac Index : 2.65 L/min/m-2 by Jean-Pierre calculation
Cardiac Output : 5.57 from L/min by Thermodilution
Cardiac Index : 2.49 L/min/m-2 by Thermodilution
Systemic vascular resistance: 1000 dsc^(-5)
Pulmonary vascular resistance: 0.84 Ojyce unit
CONCLUSION:
1. Mildly elevated right and left-sided filling pressures with normal cardiac output and low normal systemic vascular resistance.
2. Upon weaning of IABP support down at 1:3, pulmonary capillary wedge proper as well as cardiac output/index remained stable and therefore decision was made to discontinue IABP.
3. Successful removal of intra-aortic balloon pump under fluoroscopic guidance with successful hemostasis after holding manual pressure.
Amara Barriga MD, FACC, [facility]
[2025-02-16 17:53] LABS: Glucose - Point of Care 134 mg/dl (70-99)
--- NOTE | 2025-02-16 18:34 | PTCARENOTE ---
received pt from [facility] s/p swan placement, IABP removal. Right groin w dressing intact. CI 2.74 CO 6.32. Pt denies CP or SOB, sinus rhythm maintained on tele. Plan of care reviewed and questions encouraged.
[2025-02-16] MEDS: LIPITOR 80 MG PO (20:19)
[2025-02-16 20:23] LABS: Glucose - Point of Care 215 mg/dl (70-99)
--- NOTE | 2025-02-16 20:25 | PTCARENOTE ---
VSS, right femoral IABP site w dressing intact, pt denies CP or SOB.
[2025-02-16 21:22] LABS: Glucose - Point of Care 202 mg/dl (70-99)
[2025-02-16 22:13] LABS: Glucose - Point of Care 143 mg/dl (70-99)
[2025-02-16 23:09] LABS: Glucose - Point of Care 145 mg/dl (70-99)
[2025-02-17] VITALS (13 sets, daily range): BP systolic 84–136; BP diastolic 55–90; BMI 30.6
--- NOTE | 2025-02-17 00:04 | PTCARENOTE ---
Assumed care of pt at 2300 from previous shift RN, Patient alert and oriented X4, follows all commands, headache resolving after PRN Tylenol. no other pain noted. Bedrest s/p laborer mine and [place]/cordis placement in RIJ @ 43 cc. Sinus Tachycardia to
Sinus rhythm on monitor,CI 2.54 . CO 5.97, + peripheral pulses, no edema noted. Pt denies CP or SOB. Lungs clear, pox 95% on RA. +BS. Left radial artery site stable. PIVs WNL, Insulin titrated per glycemic protocol. Right groin w dressing intact.
Full assessment completed see details in workflow. call santos within reach,
[2025-02-17 01:06] LABS: Glucose - Point of Care 108 mg/dl (70-99)
[2025-02-17 03:05] LABS: Glucose - Point of Care 125 mg/dl (70-99)
--- NOTE | 2025-02-17 03:09 | PTCARENOTE ---
reassessed patient, vital signs stable, patient resting comfortable, sinus rhythm on monitor, 98% on room air, denies pain, labs drawn.
[2025-02-17 03:40] LABS: B.E. -0.7 mmol/L; HCO3 23.2 mmol/L (21-28); O2 Saturation % 98.3 % (94-98); PCO2 35 mmHg (35-48); PO2 90 mmHg (83-108)
[2025-02-17 03:43] LABS: Hematocrit 36.3 % (39.0-52.0); Hemoglobin 12.6 g/dL (13.0-18.0); Mean Corp Hgb Conc. 34.7 g/dL (33.0-37.0); Mean Corpuscular Volume 92.8 fL (80.0-94.0); Nucleated Red Blood Cells % 0 % (-); Platelet Count 170 10^3/uL (130-400); Red Cell Dist. Width 12.9 % (11.5-14.5)
[2025-02-17 04:10] LABS: ALT (SGPT) 29 U/L (0-50); AST (SGOT) 80 U/L (17-59); Albumin 3.8 g/dl (3.5-5.0); Alkaline Phosphatase 62 U/L (38-126); Blood Urea Nitrogen 22 mg/dl (9-20); Calcium 10.4 mg/dl (8.4-10.2); Carbon Dioxide 25 mmol/L (22-30); Chloride 104 mmol/L (98-107); Estimated Creatinine Clearance 116 ml/min; Glucose 113 mg/dl (70-99); Magnesium 1.9 mg/dl (1.6-2.3); Potassium 3.9 mmol/L (3.5-5.1); Sodium 133 mmol/L (135-145); Total Protein 6.8 g/dl (6.3-8.2); eGFR > 60.00
[2025-02-17 05:37] LABS: Glucose - Point of Care 111 mg/dl (70-99)
[2025-02-17] MEDS: TYLENOL 650 MG PO (05:42)
[2025-02-17] MEDS: ZOFRAN 4 MG IV (06:09)
--- NOTE | 2025-02-17 07:06 | PTCARENOTE ---
Patient 645 patient stated nausea, zofran given, Left Art line site bleeding, assessed and cleaned redressed, waveform good, linens changed and CHG bath completed.
[2025-02-17 07:19] LABS: Glucose - Point of Care 115 mg/dl (70-99)
--- NOTE | 2025-02-17 07:24 | PN.DE.MGMTRT ---
Insulin Management
- -
02/17/25: Diabetes Management Consult
64-year-old male admitted with anterolateral STEMI, s/p PCI x4 to LAD.
PMH includes: NIDDM, HTN, and CAD. Patient initiated on insulin infusion and has achieved good glycemic control with recent POC glucose ranging 108-125 mg/dL, down from initial 280-315 mg/dL on admission. A1c is 10.1%, Cr 0.8 mg/dL, eGFR >60 mL/min.
Patient is awake, alert, and oriented; able to discuss diabetes care plan. No family at bedside.
Patient reports he had previously been on Metformin but discontinued ~6 months ago after losing his job and transportation, leading to medication nonadherence and hyperglycemia. He does not currently have an freelance designer but expressed willingness
to establish care. He states his landlord has offered transportation support and is willing to drive him to doctor appointments, and he has switched to a pharmacy closer to his house.
Will transition off insulin drip to SQ insulin. Give NPH 12 units now, turn drip off 1 hr after adm SQ insulin
Start Lantus 15 units @ HS, NovoLog 4 units AC, and low corrective insulin with meals.
Hold NovoLog if eating <50% of tray due to fluctuating oral intake.
Start on Farxiga 10 mg daily for glycemic control and additional cardiovascular/renal protective benefits. Per CM Co-pay is $0
Resume Metformin 500 mg BID given sustained renal function.
Patient will be seen by Diabetes Nurse Educator for monitor instructions and education on insulin administration.
Will consult IP dietitian. Emphasized importance of medication adherence, consistent glucose monitoring, and dietary intake.
Discussed with nurse. Will continue to follow.
Diabetes History
- -
Type of Diabetes: 2 requiring insulin
Pre-Admission Diabetes Regimen
02/17/25
03:17
Creatinine 0.8
Lab Results
Hemoglobin A1c 10.1 % (4.0-5.9) H 02/15/25 19:09
Insulin Pump Settings
IP Diabetes Regimen
02/16/25 02/16/25 02/16/25
08:28 09:40 10:50
Glucose
POC Glucose 210 H 176 H 177 H
02/16/25 02/16/25 02/16/25
13:56 14:53 17:51
Glucose
POC Glucose 206 H 212 H 134 H
02/16/25 02/16/25 02/16/25
20:21 21:21 22:11
Glucose
POC Glucose 215 H 202 H 143 H
02/16/25 02/17/25 02/17/25
23:06 01:03 03:04
Glucose
POC Glucose 145 H 108 H 125 H
02/17/25 02/17/25 02/17/25
03:17 05:36 07:18
Glucose 113 H
POC Glucose 111 H 115 H
Meal type: Breakfast
Patient Education
[2025-02-17 07:48] LABS: ACT-LR - POC 263 Seconds (116-155); ACT-LR - POC 314 Seconds (116-155)
[2025-02-17 07:48] LABS: ACT-LR - POC 265 Seconds (116-155)
[2025-02-17 07:48] LABS: ACT-LR - POC 263 Seconds (116-155)
[2025-02-17 07:48] LABS: ACT-LR - POC 329 Seconds (116-155)
[2025-02-17 07:48] LABS: ACT-LR - POC 313 Seconds (116-155)
[2025-02-17 07:48] LABS: ACT-LR - POC 168 Seconds (116-155)
[2025-02-17] MEDS: ULTRAM 25 MG PO (09:24)
[2025-02-17] MEDS: LASIX 20 MG PO (09:24)
[2025-02-17] MEDS: ALDACTONE 25 MG PO (09:24)
[2025-02-17] MEDS: APRESOLINE 25 MG PO ×2 (09:25→23:32)
[2025-02-17] MEDS: BRILINTA 90 MG PO ×2 (09:25→20:01)
[2025-02-17] MEDS: LOW STRENGTH ASPIRIN 81 MG PO (09:25)
[2025-02-17] MEDS: COZAAR 25 MG PO (09:25)
[2025-02-17 09:36] LABS: Glucose - Point of Care 114 mg/dl (70-99)
--- NOTE | 2025-02-17 10:28 | PTCARENOTE ---
assumed care of pt from previous shift RN, sinus rhythm on tele, VSS. + peripheral pulses, no edema noted. Lungs clear, pox 95-98% on RA. Pt denies CP, SOB or indigestion. Slight nausea, tolerating PO intake. Voids spontaneously. Right IJ cordis w
swan/deepti leveled and zeroed, CI 2.56 CO 5.91 CVP 4-6, PAP 26/12. PIV x2 flush easily. Pt medicated for KNOWLES, states improvement.
--- NOTE | 2025-02-17 10:50 | W.PN.CARDCBS ---
Addendum entered and electronically signed by Hallie Ventura DO 02/17/25 13:10:
I saw and examined the patient.
The Hadoop Architect's note was reviewed and I agree with the note.
Comment: Patient was seen and examined. Chart reviewed. Fortunately he is feeling better and denies shortness of breath, dizziness, chest pain or pressure or abdominal pain. No wrist or groin pain. Prehospital course, hospital study findings
and current plan discussed in detail with patient and answered all questions.
General: No acute distress, AAOX3
Neck: + cortis right IJ and swan
Heart: Regular, positive S1/S2, No murmur
Lungs: CTA b/l, negative wheezes/rales/rhonchi
Abd: Positive BS, NT/ND, neg rebound/rigidity/guarding
Ext: No lower extremity edema. Warm distal extremities. Right groin with bandage and mild ecchymosis. No hematoma. Right radial without hematoma.
Neuro: nonfocal
Plan:
64-year-old male gentleman with PMH type 2 diabetes mellitus, not on any medications over the last 6 months, hypertension, family history of premature coronary artery disease, no medical contact including physician evaluation of lab work over the
last year, who presented 02/15/[address] elevation VA found to have multivessel coronary artery disease by cardiac catheterization and placement of IABP.
-Following initial cardiac catheterization, interventional cardiology consulted with CT surgery with initial plan for urgent surgical revascularization however due to ongoing chest pain and increasing troponin patient was deemed too high risk for
urgent CABG it and went for urgent percutaneous intervention.
-He underwent repeat cardiac catheterization 02/16/2025 and had successful PCI of the ostial to mid LAD with 4 overlapping drug-eluting stents with excellent angiographic and IVUS based results with IABP support.
- Subsequent right heart cath 02/16/2025 with mildly elevated right and left filling pressures with normal cardiac output and low-normal SVR, [place] kept in place to help with optimization of medical therapy. IABP weaned and removed
-Troponin peak 168 and downtrending
- Weaned off nitro drip 02/16/2025 and remains chest pain-free
- [place] in place: CI 2.56 CO 5.91 CVP 4-6, PAP 26/12
- BPs some lower readings overnight 84/58 but now improved 120-130s/50s
-Will discontinue Cordis and [place]. Discontinue A-line.
-Continue losartan, spironolactone, hydralazine. Advance GDMT as tolerated.
- Continue uninterrupted dual antiplatelet therapy with baby aspirin and Brilinta x minimum of 1 year then lifelong aspirin
- High intensity statin, started on atorvastatin 80 mg daily with LDL goal less than 55. LDL prior to statin 135
-Eventually start Coreg.
-Will consult case mgmt for cost of SGLT2-I
-Repeat limited TTE bedside 02/16/2025 showed marginally improved LV function with LVEF 40 to 45%. No evidence of LV thrombus.
-creat stable 0.8
-Cardiac rehab consulted
Type 2 diabetes mellitus, uncontrolled with hemoglobin A1c 10.1%
- Appreciate medicine consult for management of diabetes mellitus
- patient has been seen by diabetes nurse practitioner With plan for new start insulin
-Highly recommend outpatient endocrine follow-up.
Social issues/barriers to medical care�case management consulted. Patient does not have a car and will need to consider transport back and forth to doctors appointments. He also needs to establish care with internal medicine and endocrine in
addition to cardiology.
Okay to transfer to IVU
Original Note:
Today's Communication / Plan
-
d/c [place] and a-line
OOB to chair
advance GDMT as tolerated
CM consult for SGLT2-I
Impression / Plan
-
PCP: Jimenez Dunn
Primary hands assembler: none, first seen by Dr Barriga this admission
Impression
Anterolateral ST elevation VA
Cardiogenic shock
Dld-owcwhop-kxwaviklc type 2 diabetes mellitus
Hypertension
Family history CAD
Previous cardiovascular testing:
Left heart cath 02/15/2025: Severe multivessel CAD including ostium of LAD and ramus, diffuse proximal to mid distal LAD disease, severe left circumflex disease, RCA chronic total occlusions, LVEDP [address] with [address] surgery and IABP
placed
Left heart cath 02/16/2025: PCI of ostial to mid LAD with 4 overlapping drug-eluting stents, PRAVEEAN-3 flow restored into the apical LAD
Right heart cath 02/16/2025: RA 9, PA 23/15, PCWP 12, CO/CI 6.7/3.02 by Jean-Pierre calculation, SVR 878. IABP removed
Echo 02/15/2025: EF 35 to 40%, significant hypokinesis to akinesis of mid to apical anterior tidwell, anterior septum and anterior lateral tidwell including apex, normal RV size and function
Echo 02/16/2025: EF 40 to 45%, significant hypo to akinesis of the mid to apical anterior, anterolateral, and anterior septal tidwell including the apex, normal RV size and function
Plan:
64-year-old male gentleman with PMH fkg-[id number]-uhdcivwxf type 2 diabetes mellitus, not on any medications over the last 6 months, hypertension, family history of premature coronary artery disease, no medical contact including physician evaluation
of lab work over the last year, who presented 02/15/[address] elevation VA found to have multivessel coronary artery disease by cardiac catheterization, initial consideration for surgical revascularization but thought to be high risk morbidity and
mortality for urgent CABG in setting of STEMI. Patient had recurrent CP and was taken back to [facility] on 02/16/2025 and had successful PCI of the ostial to mid LAD with 4 overlapping drug-eluting stents with excellent angiographic and IVUS based
results. Subsequent right heart cath 02/16/2025 with mildly elevated right and left filling pressures with normal cardiac output and low-normal SVR, [place] kept in place to help with optimization of medical therapy
-Troponin peak 168 and downtrending
- Weaned off nitro drip 02/16/2025 and remains chest pain-free
- [place] in place: CI 2.56 CO 5.91 CVP 4-6, PAP 26/12
- BPs some lower readings overnight 84/58 but now improved 120-130s/50s
-Continue losartan, spironolactone, hydralazine. Advance GDMT as tolerated. Eventually start Coreg. Will consult case mgmt for cost of SGLT2-I
- DC [place] and A-line today and eventual transfer to IVU
-Repeat limited TTE bedside 02/16/2025 showed marginally improved LV function with LVEF 40 to 45%. No evidence of LV thrombus.
-creat stable 0.8
- Continue uninterrupted dual antiplatelet therapy with baby aspirin and Brilinta x minimum of 1 year then lifelong aspirin
- High intensity statin, started on atorvastatin 80 mg daily with LDL goal less than 55. LDL prior to statin 135
-Cardiac rehab consulted
-EKG: NSR inf VA, ant/septal VA-stable c/w 02/16/2025
-telemetry reviewed: NSR/ST 90-110
- Appreciate medicine consult for management of diabetes mellitus
- Hgb A1c 10.1
- patient has been seen by diabetes nurse practitioner
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
Subjective
Date of Service: February 17, 2025
denies CP
c/o headache
Objective
Labs:
02/17/25 03:17
02/17/25 03:17
Labs
Hgb 12.6 g/dL (13.0-18.0) L 02/17/25 03:17
Hct 36.3 % (39.0-52.0) L 02/17/25 03:17
Plt Count 170 10^3/uL (130-400) 02/17/25 03:17
PT 15.3 Sec (11.4-14.6) H 02/15/25 19:09
INR 1.18 02/15/25 19:09
APTT Cancelled 02/16/25 18:15
Sodium 133 mmol/L (135-145) L 02/17/25 03:17
Potassium 3.9 mmol/L (3.5-5.1) 02/17/25 03:17
BUN 22 mg/dl (9-20) H 02/17/25 03:17
Creatinine 0.8 mg/dL (0.7-1.3) 02/17/25 03:17
Glucose 113 mg/dl (70-99) H 02/17/25 03:17
Troponins
02/15/25 02/15/25 02/15/25
16:23 16:23 16:23
Troponin I 1.400 H* Cancelled Cancelled
02/15/25 02/16/25 02/16/25
22:00 03:41 03:41
Troponin I 90.900 H* D 168.000 H* D Cancelled
02/16/25 02/16/25 02/16/25
08:56 08:56 13:57
Troponin I 60.500 H* D 56.500 H* 45.700 H*
02/16/25
15:00
Troponin I Cancelled
Vital Signs and I&O:
Vital Signs
Temp Pulse Resp BP Pulse Ox
98.7 F 91 127 95
02/17/25 07:00 02/17/25 10:00 02/17/25 10:00 02/17/25 09:37 02/17/25 10:00
Vital Signs
Temp Pulse Resp BP Pulse Ox
98.7 F 91 127 95
02/17/25 07:00 02/17/25 10:00 02/17/25 10:00 02/17/25 09:37 02/17/25 10:00
Intake & Output
02/15/25 02/16/25 02/17/25 02/18/25
06:59 05:59 06:59 06:59
Intake Total 285.06 / 321.06 787.0 / 801.5 59.0 / 59.0
Output Total 1500 / 1500 1350 / 1350 450 / 450
Balance -1214.94 / -1178.94 -563.0 / -548.5 -391.0 / -391.0
Physical Exam
Physical Exam
GEN: No distress, awake, Ox3
HEENT: supple, anicteric, mmm. RIJ [place]
LUNGS: CTA, no wheezes/rales
CV: Reg, S1/S2, no murmur
ABD: soft, BS+, NT/ND
EXT: No edema. R groin IABP site sl tender, mild bruising, no hematoma, no bruit. R radial cath site intact with drsg, nontender
NEURO: Gross non-focal
SKIN: No rash
--- NOTE | 2025-02-17 11:27 | W.PN.HOSP.TC ---
Today's Communication/Plan
-
Switching to subcu insulin
Assessment / Plan
Assessment / Plan
64-year-old male with past medical history of type 2 diabetes presented with continuous chest pain found to have acute anterolateral ST elevation myocardial infarction taken to the [facility] for left heart cath that revealed multivessel CAD. Patient
was subsequently started on medical therapy with heparin, IV nitroglycerin, ticagrelor, and an IABP was placed. Patient currently being evaluated for potential CABG.
1. Acute Anterolateral STEMI
- Currently in CVICU; evaluation for potential CABG.
- Status post left heart cath with multivessel CAD.
- Medical management with heparin, IV nitroglycerin, ticagrelor
- ASA/high intensity statin/beta-robyn
- Goal MAP 65 mmHg
2. Hypertension
- Management per interventional cardiology
3. Hyperlipidemia
- High intensity statin
4. Type 2 Diabetes Mellitus
- HbA1c = 10.0
- Patient previously on metformin, has not taken in 6 months.
- Transition off of insulin drip in CVICU
- Lantus 15 units, NovoLog 4 units
- Low ISS
- Will continue to follow
DVT PPx: Heparin
Diet: Cholesterol-lowering, low CHO
Code: Full
Anticipated Discharge: > 48 hours
Subjective/Interval History
-
Patient reported doing okay this morning, he reports he has a headache but otherwise no shortness of breath or chest pain. He had no fevers or chills overnight. Date of Service: February 17, 2025
Objective Data
-
Labs:
Laboratory Results
02/17/25
03:17
WBC 15.1 H
Hgb 12.6 L
Hct 36.3 L
Plt Count 170
HCO3 23.2
Sodium 133 L
Potassium 3.9
Chloride 104
Carbon Dioxide 25
BUN 22 H
Creatinine 0.8
Glucose 113 H
Calcium 10.4 H
Total Bilirubin 1.1
AST 80 H
ALT 29
Alkaline Phosphatase 62
Vital Signs:
Vital Signs
Temp Pulse Resp BP Pulse Ox
98.7 F 91 17 127/81 95
02/17/25 07:00 02/17/25 10:00 02/17/25 10:00 02/17/25 09:37 02/17/25 10:57
I&O
02/16/25 02/17/25 02/18/25
05:59 06:59 06:59
Intake Total 285.06 / 321.06 787.0 / 801.5 59.0 / 59.0
Output Total 1500 / 1500 1350 / 1350 450 / 450
Balance -1214.94 / -1178.94 -563.0 / -548.5 -391.0 / -391.0
Review of Systems
-
History Source: Patient
Constitutional: Denies Fever or Chills
EENT: Denies Runny Nose
Respiratory: Denies Cough or Trouble Breathing
Cardiac: Denies Chest Pain or Palpitations
Abdomen/GI: Denies Abdominal Pain, Nausea, Vomiting, Diarrhea or Constipated
Neuro: Reports Headache; Denies Weakness
Physical Exam
-
General: Well Developed, Well Nourished, No Apparent Distress and Obese; Negative Fever
HEENT: Normocephalic and Atraumatic
Respiratory: Clear to Auscultation and Non Labored Respirations; Negative Wheezes or Crackles
Cardiac: Regular Rhythm and S1/S2; Negative Murmur
GI: Soft, Nontender, Nondistended and Normal Bowel Sounds
Musculoskeletal: No Clubbing and No Edema
Skin: Warm and Dry
Neuro: Awake and Alert
[2025-02-17] MEDS: NOVOLIN N vial 0.12 UNITS SC (11:36)
[2025-02-17 11:41] LABS: Glucose - Point of Care 109 mg/dl (70-99)
[2025-02-17] MEDS: FARXIGA 10 MG PO (11:47)
--- NOTE | 2025-02-17 12:12 | PTCARENOTE ---
dasia Russ and cordis removed. Insulin administered as ordered and insulin gtt discontinued.
[2025-02-17 13:03] LABS: Glucose - Point of Care 133 mg/dl (70-99)
--- NOTE | 2025-02-17 13:07 | CON.HOSP ---
Family Physician
-
Family Physician: Jimenez Dunn DO
Chief Complaint
-
hyperglycemia
History of Present Illness
64-year-old male past medical history of type 2 diabetes, hypertension, hyperlipidemia, complicated diverticulitis status post exploratory laparotomy with temporary ostomy status post reversal, presented to the hospital on 02/15 for chest pain and
found to have STEMI. �He was taken urgently to [facility] for left heart catheterization showing multivessel CAD. �Patient had PCI of ostial to mid LAD with 4 overlapping drug-eluting stents. �Intra-aortic balloon pump was placed. �IABP was
successfully weaned off and removed. He currently denies any chest pain or shortness of breath.
Patient was found to be hypoglycemic and placed on an insulin drip which was stopped this morning. Hospitalist are consulted for hyperglycemia management.
Patient has a history of type 2 diabetes and is on metformin until 6 months ago when his car broke down and he has been unable to go to the pharmacy to grape picker metformin. He has never been on insulin.
He does not smoke or drink alcohol.
Medical History
Past Medical History
Past Medical History: Reports Other (type 2 diabetes, hypertension, hyperlipidemia, complicated diverticulitis status post exploratory laparotomy with temporary ostomy status post reversal,)
Past Surgical History: Reports Other ( Bowel Resection and Orthopedic)
Social History
Tobacco: Non-smoker
Alcohol: None
Drug: None
Allergies / Home Medications
Allergies reflects when Allergies were last updated in [facility].
Home Medications with original date entered in [facility]
Allergy/Medication List:
Allergies
Allergy/AdvReac Type Severity Reaction Status Date / Time
iodine Allergy Intermediate Itching Verified 02/16/25 07:33
NKA - No Known Allergies Allergy Unknown Uncoded 10/19/20 18:03
Home Medications
hydrocodone 5 mg-acetaminophen 325 mg tablet 1 tab PO Q4HPRN PRN pain #10 tabs 05/27/16
Review of Systems
-
History Source: Patient
A 12 point Review of Systems was completed except as noted: Yes
Constitutional: Reports No Symptoms
EENT: Reports No Symptoms
Respiratory: Reports No Symptoms
Cardiac: Reports No Symptoms
Abdomen/GI: Reports No Symptoms
: Reports No Symptoms
Musculoskeletal: Reports No Symptoms
Skin: Reports No Symptoms
Neurological: Reports No Symptoms
Endocrine: Reports No Symptoms
Hematologic/Lymphatic: Reports No Symptoms
Psych: Reports No Symptoms
Physical Exam
Vital Signs
Vital Signs
Temp Pulse Resp BP Pulse Ox
98.3 F 102 18 129/90 98
02/17/25 12:00 02/17/25 12:00 02/17/25 12:00 02/17/25 11:46 02/17/25 12:00
Physical Exam
General: Well Developed, Well Nourished and No Apparent Distress
HEENT: Normocephalic, Moist Mucous Membranes and Atraumatic
Respiratory: Clear
Cardiac: S1/S2 and Regular Rhythm; Negative Murmur or Rub
GI: Soft, Non Tender, Non Distended and Normal Bowel Sounds
Rectal: Deferred by Provider
Musculoskeletal: No Clubbing, No Cyanosis and No Edema
Skin: Negative Rash
Neuro: Nonfocal/Grossly Intact
Laboratory Results
-
Laboratory Results
02/17/25 03:17
02/17/25 03:17
PT 15.3 Sec (11.4-14.6) H 02/15/25 19:09
INR 1.18 02/15/25 19:09
APTT Cancelled 02/16/25 18:15
pH 7.43 (7.35-7.45) 02/17/25 03:17
pCO2 35 mmHg (35-48) 02/17/25 03:17
pO2 90 mmHg (83-108) 02/17/25 03:17
HCO3 23.2 mmol/L (21-28) 02/17/25 03:17
Lactic Acid 1.5 mmol/L (0.7-2.0) 02/17/25 03:17
Total Bilirubin 1.1 mg/dl (0.2-1.3) 02/17/25 03:17
AST 80 U/L (17-59) H 02/17/25 03:17
ALT 29 U/L (0-50) 02/17/25 03:17
Alkaline Phosphatase 62 U/L (38-126) 02/17/25 03:17
Troponin I Cancelled 02/16/25 15:00
Data Reviewed
-
Lab Data: Labs Reviewed
Old Records: Reviewed
Impression / Plan
-
IMPRESSION:
PLAN:
# STEMI complicated with cardiogenic shock
# Multivessel CAD status post PCI to mid LAD with 4 overlapping stents
- Was deemed to be too high for CABG so PCI was pursued
- Status post removal of IABP
- Continue aspirin, Brilinta, statin, Coreg, dapagliflozin
-Continue Lasix 20 mg daily
#Ischemic cardiomyopathy
- EF of 35 to 40% which improved to 40 to 45% after PCI to LAD
#Uncontrolled diabetes
Type 2 diabetes
- A1c is 10
- Blood sugar as high as 315 yesterday
- Insulin drip stopped this morning and patient given single dose of NPH as a bridge to Lantus 15 units to start tonight
-Metformin also resumed
-Patient also started on Humalog 4 units before meals and insulin sliding scale
-Patient also on dapagliflozin for ischemic cardiomyopathy
- Diabetes nurse educator following
Essential hypertension
- Continue hydralazine
Hyperlipidemia
History of complicated diverticulitis status post exploratory laparotomy temporary ostomy status post reversal
Full code
DVT prophylaxis�none
Diabetic diet
[2025-02-17] MEDS: NOVOLOG FLEXPEN-LOW RESISTANCE SC (13:11)
[2025-02-17] MEDS: NOVOLOG FLEXPEN 4 UNITS SC ×2 (13:11→18:20)
--- NOTE | 2025-02-17 14:55 | PTCARENOTE ---
pt ambulating in hallway independently, denies pain. BP 91/66, HR 107. Delmy EMERY made aware, instructed to hold hydralazine dose.
[2025-02-17] MEDS: APRESOLINE PO (14:58)
--- NOTE | 2025-02-17 16:23 | CM ---
pricepeggy Josue at [facility], [place], operated by [facility]- his copay is zero dollars
[2025-02-17 17:21] LABS: Glucose - Point of Care 197 mg/dl (70-99)
[2025-02-17] MEDS: GLUCOPHAGE 500 MG PO (18:20)
[2025-02-17] MEDS: LIPITOR 80 MG PO (18:20)
[2025-02-17] MEDS: NOVOLOG FLEXPEN-LOW RESISTANCE 1 UNITS SC (18:21)
[2025-02-17 21:48] LABS: Glucose - Point of Care 164 mg/dl (70-99)
[2025-02-17] MEDS: LANTUS 0.15 UNITS SC (23:28)
[2025-02-18] VITALS (10 sets, daily range): BP systolic 89–122; BP diastolic 53–89; BMI 30.3
--- NOTE | 2025-02-18 01:05 | PTCARENOTE ---
Rec'd pt at change of shift. Pt AAO*3, VSS, and SR-Sinus tach on tele monitor. Pt denies any pain or discomfort. Pt updated on plan of care. Pt now resting with call santos in reach. See MAR and flowchart for full pt care and assessment.
[2025-02-18] MEDS: TYLENOL 650 MG PO (03:18)
[2025-02-18 08:33] LABS: Glucose - Point of Care 145 mg/dl (70-99)
[2025-02-18] MEDS: ALDACTONE 25 MG PO (08:34)
[2025-02-18] MEDS: NOVOLOG FLEXPEN-LOW RESISTANCE SC (08:34)
[2025-02-18] MEDS: GLUCOPHAGE 500 MG PO ×2 (08:35→16:24)
[2025-02-18] MEDS: BRILINTA 90 MG PO ×2 (08:35→20:17)
[2025-02-18] MEDS: COZAAR 25 MG PO (08:35)
[2025-02-18] MEDS: FARXIGA 10 MG PO (08:35)
[2025-02-18] MEDS: LASIX 20 MG PO (08:36)
[2025-02-18] MEDS: LOW STRENGTH ASPIRIN 81 MG PO (08:36)
[2025-02-18] MEDS: APRESOLINE 25 MG PO ×2 (08:36→16:25)
[2025-02-18] MEDS: FLUSH (NSS) 2 FLUSH IV (08:37)
--- NOTE | 2025-02-18 09:52 | PTCARENOTE ---
Patient resting in bed this morning, offers no complaints, SR on the monitor. Right groin dressing is dry and intact with some ecchymosis, RIJ and left wrist dressings are dry and intact. Call santos in reach, waiting for his breakfast.
[2025-02-18] MEDS: NOVOLOG FLEXPEN 4 UNITS SC ×2 (10:04→18:07)
--- NOTE | 2025-02-18 10:05 | PN.DE.MGMTRT ---
Insulin Management
- -
02/18/25: Diabetes Management Consult Follow up
64-year-old male admitted with anterolateral STEMI, s/p PCI x4 to LAD.
PMH includes: NIDDM, HTN, and CAD, diverticulitis with resection of 12' of colon. Prior to admission was taking no medications for diabetes. Initial glucose 280-315 mg/dL on admission. A1c is 10.1%, Cr 0.8 mg/dL, eGFR >60 mL/min.
Patient is awake, alert, and oriented; able to discuss diabetes care plan. No family at bedside.
Patient reports he had previously been on Metformin but discontinued ~6 months ago after losing his job and transportation, leading to medication nonadherence and hyperglycemia. He does not currently have an clerical support but expressed willingness
to establish care. He states his landlord has offered transportation support and is willing to drive him to doctor appointments, and he has switched to a pharmacy closer to his house.
02/17 Transitioned off insulin infusion, glucose 164 to 197. Received 15 units lantus @ HS and 4 units novolog AC with low corrective insulin and metformin 500 mg BID. Started Farxiga 10 mg daily for glycemic control and additional
cardiovascular/renal protective benefits. Per CM Co-pay is $0
02/18 Received 15 units lantus @ HS fasting glucose 145. Will continue Farxiga 10 mg daily, metformin 500 mg BID lantus 15 units @ hs with novolog 4 units AC.
Hold NovoLog if eating <50% of tray due to fluctuating oral intake.
Patient was seen by Diabetes Nurse Educator today for monitor instructions and education on insulin administration.
Emphasized importance of medication adherence, consistent glucose monitoring, and dietary intake.
Discussed with nurse. Will continue to follow.
Diabetes History
- -
Type of Diabetes: 2 requiring insulin
Pre-Admission Diabetes Regimen
Lab Results
Hemoglobin A1c 10.1 % (4.0-5.9) H 02/15/25 19:09
Insulin Pump Settings
IP Diabetes Regimen
02/17/25 02/17/2525
11:40 13:02 17:20
POC Glucose 109 H 133 H 197 H
02/17/25 02/18/25
21:46 08:32
POC Glucose 164 H 145 H
Meal type: Breakfast
Patient Education
--- NOTE | 2025-02-18 11:13 | CM ---
Chart reviewed. Patient is independent of ADLS, lives alone in a apartment, 6 [address], 0 DME. Patient concerned about commuting to his doctor's appointment. I gave patient an application for [facility] [employer]. I also called his daughter and
reviewed the information with her. Plan is for the patient to return home. CM to follow
--- NOTE | 2025-02-18 11:15 | CM ---
Pricing on Brilinta through the patient's prescription plan, ID# [id number], ph# [phone], is $3 for 30 days. Ticagrelor would need a prior authorization. I spoke to the patient's daughter and she expressed concern about him being able to
afford insulin. I reached out to the Diabetic Educators to inquire his long dose plan. CM to burns Insulin when we get confirmation.
[2025-02-18 13:28] LABS: Glucose - Point of Care 182 mg/dl (70-99)
[2025-02-18] MEDS: NOVOLOG FLEXPEN SC (13:36)
[2025-02-18] MEDS: NOVOLOG FLEXPEN-LOW RESISTANCE 1 UNITS SC ×2 (13:36→18:08)
--- NOTE | 2025-02-18 13:41 | PTCARENOTE ---
Patient does not want lunch, accu check 182. Meal time insulin held but sliding scale insulin given. Patient was able to use the novolog pen and inject himself with some instruction, but did fairly well. Family in visiting.
--- NOTE | 2025-02-18 13:49 | PTCARENOTE ---
02/18/2025 DIABETES EDUCATION CONSULT
I met with patient to review diabetes management. He has had DM for years, states his A1c was 14% in the past and MD prescribed Metformin and brought it down to 7%. He has since stopped Metformin, current HbA1c is 10.1%.
He states he is very aware of the organ damage and complications from having uncontrolled DM. I reinforced the physiology of T2D, organ damage, managing with medications, monitoring BG, nutrition, activity, sleep and managing stress. I reinforced
signs of hyperglycemia, hypoglycemia and hypoglycemia protocol; BS parameters and recommended HbA1c goals, glucometer and CGM instructions, glucose tracker, medic alert bracelet and outpatient DSME program. Written material provided. He asked that
we contact his daughter, Carly to discuss ongoing education classes at [phone]; Carly is also a nurse.
I provided patient with a [employer] glucometer sample kit. Provided verbal instructions on proper blood sugar testing technique, and demonstration with patient�s participation. His BS 90 minutes postprandial is 168 mg/dL.
I educated and demonstrated on insulin injection technique, timing, and storage. Discussed long and short acting insulin; onset/peak/duration, and encouraged her to administer his own injections with RN supervision while admitted. Discussed normal
target glucose ranges and a monitoring schedule 15 minutes before each meal when prescribed Novolog, and before bedtime. Spoke to RN, insulin pen needles provided.
Encouraged patient to follow up with his PCP for post d/c appointment and to monitor medication and blood glucose levels. He states he does not have a PCP, but thinks either a CM or MD is providing him with a list of PCP's. He also states he
has no transportation, the CM provided him with an application for [employer], but also states he can get a ride from his landlord or daughter to MD appointments. I provided list of endocrinologists if desired, to contact insurance
company to verify in network status. Requested a prescription for blood sugar testing supplies to be sent to his pharmacy on record. Patient verbalized understanding.
--- NOTE | 2025-02-18 13:49 | CM ---
Pricing on Lantus is covered under the patient's PP at a tier 1 $3 copay.
Lantus is a tier 2 and will need a PA faxed. Forms can be found on the website [email or web address] and will cost $3 copay.
--- NOTE | 2025-02-18 15:15 | W.PN.HOSP.TC ---
Today's Communication/Plan
-
Continue current antihyperglycemic management
Assessment / Plan
Assessment / Plan
64-year-old male with past medical history of type 2 diabetes presented with continuous chest pain found to have acute anterolateral ST elevation myocardial infarction taken to [facility] for left heart cath that revealed multivessel CAD. Patient
was subsequently started on medical therapy with heparin, IV nitroglycerin, ticagrelor, and an IABP was placed. Patient currently being evaluated for potential CABG.
1. Acute Anterolateral STEMI
- Currently in CVICU; evaluation for potential CABG.
- Status post left heart cath with multivessel CAD.
- Medical management with heparin, IV nitroglycerin, ticagrelor
- ASA/high intensity statin/beta-robyn
- Goal MAP 65 mmHg
2. Hypertension
- Management per interventional cardiology
3. Hyperlipidemia
- High intensity statin
4. Type 2 Diabetes Mellitus
- HbA1c = 10.0
- Patient previously on metformin, has not taken in 6 months.
- Transition off of insulin drip in CVICU
- Lantus 15 units, NovoLog 4 units
- Low ISS
- Will continue to follow
DVT PPx: Heparin
Diet: Cholesterol-lowering, low CHO
Code: Full
Anticipated Discharge: 24 - 48 hours
Subjective/Interval History
-
Patient was seen at bedside. He reports feeling well is feeling much better than last couple days. He reports no nausea vomiting fevers chills shortness of breath or chest pain. Date of Service: February 18, 2025
Objective Data
-
Vital Signs:
Vital Signs
Temp Pulse Resp BP Pulse Ox
99 F 94 16 99/72 96
02/18/25 11:12 02/18/25 11:12 02/18/25 11:12 02/18/25 11:12 02/18/25 11:12
I&O
02/17/25 02/18/25 02/19/25
06:59 06:59 06:59
Intake Total 787.0 / 801.5 159.0 / 159.0 240 / 240
Output Total 1350 / 1350 450 / 450
Balance -563.0 / -548.5 -291.0 / -291.0 240 / 240
Review of Systems
-
History Source: Patient
Constitutional: Denies Fever or Chills
EENT: Denies Runny Nose
Respiratory: Denies Cough, Trouble Breathing or Wheezing
Cardiac: Denies Chest Pain or Palpitations
Abdomen/GI: Denies Abdominal Pain, Nausea, Vomiting, Diarrhea or Constipated
Genitourinary: Denies Dysuria
Skin: Denies Itching
Neuro: Denies Dizzy or Headache
Physical Exam
-
General: Well Developed, Well Nourished, No Apparent Distress, Comfortable and Obese; Negative Fever
HEENT: Normocephalic and Atraumatic
Respiratory: Clear to Auscultation and Non Labored Respirations; Negative Wheezes or Crackles
Cardiac: Regular Rhythm and S1/S2; Negative Murmur
GI: Soft, Nontender, Nondistended and Normal Bowel Sounds
Musculoskeletal: No Clubbing and No Edema
Skin: Warm and Dry
Neuro: Awake and Alert
--- NOTE | 2025-02-18 16:37 | W.PN.CARDCBS ---
Today's Communication / Plan
-
Plan:
64-year-old male gentleman with PMH any-fdneczr-qjitwmnve type 2 diabetes mellitus, not on any medications over the last 6 months, hypertension, family history of premature coronary artery disease, no medical contact including physician evaluation
of lab work over the last year, who presented 02/15/[address] elevation CA found to have multivessel coronary artery disease by cardiac catheterization, initial consideration for surgical revascularization but thought to be high risk morbidity and
mortality for urgent CABG in setting of STEMI. Patient had recurrent CP and was taken back to [facility] on 02/16/2025 and had successful PCI of the ostial to mid LAD with 4 overlapping drug-eluting stents with excellent angiographic and IVUS based
results. Subsequent right heart cath 02/16/2025 with mildly elevated right and left filling pressures with normal cardiac output and low-normal SVR, [place] kept in place to help with optimization of medical therapy
-Troponin peak 168 and downtrending. We are no longer trending this.
- Weaned off nitro drip 02/16/2025 and remains chest pain-free. No indigestion or shortness of breath either.
- [place] had been in place: CI 2.56 CO 5.91 CVP 4-6, PAP 26/12. This was taken out on February 17, 2025. On exam, he is euvolemic today.
- BPs some lower readings overnight 84/58 but now improved 120-130s/50s
-Continue losartan, spironolactone. Advance GDMT as tolerated. Start low-dose carvedilol today, February 18, 2025. Hold hydralazine in anticipation to see if blood pressure will tolerate Entresto instead of losartan. Continue Farxiga.
-Repeat limited TTE bedside 02/16/2025 showed marginally improved LV function with LVEF 40 to 45%. No evidence of LV thrombus.
- creat stable 0.8
- Continue uninterrupted dual antiplatelet therapy with baby aspirin and Brilinta x minimum of 1 year then lifelong aspirin
- High intensity statin, started on atorvastatin 80 mg daily with LDL goal less than 55. LDL prior to statin 135
-Cardiac rehab consulted
- Appreciate medicine input in regards to diabetes management and nutrition consult.
- Anticipate discharge in the next 24 to 48 hours.
Discussed in detail with patient and family at bedside as well as nursing.
Amara Barriga MD, [facility], [facility]
Total time spent: 52 minutes
Impression / Plan
-
PCP: Jimenez Dunn
Primary worldwide chief creative officer: none, first seen by Dr Barriga this admission
Impression
Anterolateral ST elevation CA
Cardiogenic shock
Eeu-zmsrcfz-mriftkcte type 2 diabetes mellitus
Hypertension
Family history CAD
Previous cardiovascular testing:
Left heart cath 02/15/2025: Severe multivessel CAD including ostium of LAD and ramus, diffuse proximal to mid distal LAD disease, severe left circumflex disease, RCA chronic total occlusions, LVEDP 23 mmHg[address] Case reviewed with [address] surgery and IABP
placed
Left heart cath 02/16/2025: PCI of ostial to mid LAD with 4 overlapping drug-eluting stents, PRAVEENA-3 flow restored into the apical LAD
Right heart cath 02/16/2025: RA 9, PA 23/15, PCWP 12, CO/CI 6.7/3.02 by Jean-Pierre calculation, SVR 878. IABP removed
Echo 02/15/2025: EF 35 to 40%, significant hypokinesis to akinesis of mid to apical anterior tidwell, anterior septum and anterior lateral tidwell including apex, normal RV size and function
Echo 02/16/2025: EF 40 to 45%, significant hypo to akinesis of the mid to apical anterior, anterolateral, and anterior septal tidwell including the apex, normal RV size and function
Plan:
64-year-old male gentleman with PMH gyz-mjpoqje-cgikeoqyn type 2 diabetes mellitus, not on any medications over the last 6 months, hypertension, family history of premature coronary artery disease, no medical contact including physician evaluation
of lab work over the last year, who presented 02/15/[address] elevation CA found to have multivessel coronary artery disease by cardiac catheterization, initial consideration for surgical revascularization but thought to be high risk morbidity and
mortality for urgent CABG in setting of STEMI. Patient had recurrent CP and was taken back to [facility] on 02/16/2025 and had successful PCI of the ostial to mid LAD with 4 overlapping drug-eluting stents with excellent angiographic and IVUS based
results. Subsequent right heart cath 02/16/2025 with mildly elevated right and left filling pressures with normal cardiac output and low-normal SVR, [place] kept in place to help with optimization of medical therapy
-Troponin peak 168 and downtrending. We are no longer trending this.
- Weaned off nitro drip 02/16/2025 and remains chest pain-free. No indigestion or shortness of breath either.
- [place] had been in place: CI 2.56 CO 5.91 CVP 4-6, PAP 26/12. This was taken out on February 17, 2025. On exam, he is euvolemic today.
- BPs some lower readings overnight 84/58 but now improved 120-130s/50s
-Continue losartan, spironolactone. Advance GDMT as tolerated. Start low-dose carvedilol today, February 18, 2025. Hold hydralazine in anticipation to see if blood pressure will tolerate Entresto instead of losartan. Continue Farxiga.
-Repeat limited TTE bedside 02/16/2025 showed marginally improved LV function with LVEF 40 to 45%. No evidence of LV thrombus.
- creat stable 0.8
- Continue uninterrupted dual antiplatelet therapy with baby aspirin and Brilinta x minimum of 1 year then lifelong aspirin
- High intensity statin, started on atorvastatin 80 mg daily with LDL goal less than 55. LDL prior to statin 135
-Cardiac rehab consulted
- Appreciate medicine input in regards to diabetes management and nutrition consult.
- Anticipate discharge in the next 24 to 48 hours.
Amara Barriga MD, [facility], [facility]
Progress Note - Cork Mixer
Subjective
Date of Service: February 18, 2025
No issues overnight. No chest pain or discomfort/indigestion. No shortness of breath. He does note some lightheadedness/dizziness with ambulation.
Objective
Labs:
02/17/25 03:17
02/17/25 03:17
Labs
Hgb 12.6 g/dL (13.0-18.0) L 02/17/25 03:17
Hct 36.3 % (39.0-52.0) L 02/17/25 03:17
Plt Count 170 10^3/uL (130-400) 02/17/25 03:17
PT 15.3 Sec (11.4-14.6) H 02/15/25 19:09
INR 1.18 02/15/25 19:09
APTT Cancelled 02/16/25 18:15
Sodium 133 mmol/L (135-145) L 02/17/25 03:17
Potassium 3.9 mmol/L (3.5-5.1) 02/17/25 03:17
BUN 22 mg/dl (9-20) H 02/17/25 03:17
Creatinine 0.8 mg/dL (0.7-1.3) 02/17/25 03:17
Glucose 113 mg/dl (70-99) H 02/17/25 03:17
Troponins
02/15/25 02/15/25 02/15/25
16:23 16:23 16:23
Troponin I 1.400 H* Cancelled Cancelled
02/15/25 02/16/25 02/16/25
22:00 03:41 03:41
Troponin I 90.900 H* D 168.000 H* D Cancelled
02/16/25 02/16/25 02/16/25
08:56 08:56 13:57
Troponin I 60.500 H* D 56.500 H* 45.700 H*
02/16/25
15:00
Troponin I Cancelled
Vital Signs and I&O:
Vital Signs
Temp Pulse Resp BP Pulse Ox
98.5 F 91 18 113/71 99
02/18/25 15:29 02/18/25 15:20 02/18/25 15:29 02/18/25 15:20 02/18/25 15:29
Vital Signs
Temp Pulse Resp BP Pulse Ox
98.5 F 91 18 113/71 99
02/18/25 15:29 02/18/25 15:20 02/18/25 15:29 02/18/25 15:20 02/18/25 15:29
Intake & Output
02/16/25 02/17/25 02/18/25 02/19/25
05:59 06:59 06:59 06:59
Intake Total 285.06 / 321.06 787.0 / 801.5 159.0 / 159.0 240 / 240
Output Total 1500 / 1500 1350 / 1350 450 / 450
Balance -1214.94 / -1178.94 -563.0 / -548.5 -291.0 / -291.0 240 / 240
Physical Exam
Physical Exam
GEN: No distress, awake, Ox3
HEENT: supple, anicteric, mmm. RIJ [place]
LUNGS: CTA, no wheezes/rales
CV: Reg, S1/S2, no murmur
ABD: soft, BS+, NT/ND
EXT: No edema. R groin IABP site sl tender, mild bruising, no hematoma, no bruit. R radial cath site intact with drsg, nontender
NEURO: Gross non-focal
SKIN: No rash
[2025-02-18] MEDS: NITROSTAT (SUBLINGUAL) 0.4 MG SL (17:17)
[2025-02-18] MEDS: LIPITOR 80 MG PO (17:28)
--- NOTE | 2025-02-18 17:37 | PTCARENOTE ---
Patient complained of some left sided jaw discomfort, stated it was a dull ache, 4/10 and did [place] radiate[place], [id number][address] Barriga and patient given NTG x 1, BP 89/52 but patient states pain has resolved but he does have a discomfort
when he presses on the area. Dr. Barriga updated.
[2025-02-18 18:07] LABS: Glucose - Point of Care 189 mg/dl (70-99)
[2025-02-18] MEDS: COREG 3.125 MG PO (20:17)
[2025-02-18 22:19] LABS: Glucose - Point of Care 155 mg/dl (70-99)
[2025-02-18] MEDS: LANTUS 0.15 UNITS SC (22:20)
--- NOTE | 2025-02-18 22:50 | PTCARENOTE ---
Received pt AAOx3, denies jaw pain. VSS, Sinus Rhythm.
[2025-02-19 04:00] VITALS: BP 120/88
[2025-02-19 05:59] VITALS: BMI 29.5
[2025-02-19 08:02] VITALS: BP 110/69
--- NOTE | 2025-02-19 08:07 | PN.DE.MGMTRT ---
Insulin Management
- -
02/19/25: Diabetes Management Consult Follow up
64-year-old male admitted with anterolateral STEMI, s/p PCI x4 to LAD.
PMH includes: NIDDM, HTN, and CAD, diverticulitis with resection of 12' of colon. Prior to admission was taking no medications for diabetes. Initial glucose 280-315 mg/dL on admission. A1c is 10.1%, Cr 0.8 mg/dL, eGFR >60 mL/min.
Patient is awake, alert, and oriented; able to discuss diabetes care plan. No family at bedside.
Patient reports he had previously been on Metformin but discontinued ~6 months ago after losing his job and transportation, leading to medication nonadherence and hyperglycemia. He does not currently have an construction safety manager but expressed willingness
to establish care. He states his landlord has offered transportation support and is willing to drive him to doctor appointments, and he has switched to a pharmacy closer to his house.
02/17 Transitioned off insulin infusion, glucose 164 to 197. Received 15 units lantus @ HS and 4 units novolog AC with low corrective insulin and metformin 500 mg BID. Started Farxiga 10 mg daily for glycemic control and additional
cardiovascular/renal protective benefits. Per CM Co-pay is $0
02/18 Received 15 units lantus @ HS fasting glucose 145. Will continue Farxiga 10 mg daily, metformin 500 mg BID lantus 15 units @ hs with novolog 4 units AC.
02/19 Fasting glucose 157. Will increase AC novolog to 5 units with low corrective insulin. Will continue lantus 15 units @ hs with Farxiga 10 mg daily, metformin 500 mg BID.
Hold NovoLog if eating <50% of tray due to fluctuating oral intake.
Patient was seen by Diabetes Nurse Educator today for monitor instructions and education on insulin administration.
Emphasized importance of medication adherence, consistent glucose monitoring, and dietary intake.
Discussed with nurse. Will continue to follow.
Diabetes History
- -
Type of Diabetes: 2 requiring insulin
Pre-Admission Diabetes Regimen
Lab Results
Hemoglobin A1c 10.1 % (4.0-5.9) H 02/15/25 19:09
Insulin Pump Settings
IP Diabetes Regimen
02/18/25 02/18/25 02/18/25
08:32 13:26 18:06
POC Glucose 145 H 182 H 189 H
02/18/25
22:18
POC Glucose 155 H
Meal type: Lunch
Meal type: Breakfast
Amount consumed: Patient refused
Amount consumed: 100%
Patient Education
[2025-02-19] MEDS: ALDACTONE 25 MG PO (08:38)
[2025-02-19] MEDS: BRILINTA 90 MG PO (08:38)
[2025-02-19] MEDS: COREG 3.125 MG PO (08:39)
[2025-02-19] MEDS: GLUCOPHAGE 500 MG PO (08:39)
[2025-02-19] MEDS: FARXIGA 10 MG PO (08:39)
[2025-02-19] MEDS: COZAAR 25 MG PO (08:39)
[2025-02-19] MEDS: FLUSH (NSS) 2 FLUSH IV (08:40)
[2025-02-19] MEDS: LASIX 20 MG PO (08:40)
[2025-02-19] MEDS: LOW STRENGTH ASPIRIN 81 MG PO (08:40)
[2025-02-19 08:44] LABS: Glucose - Point of Care 157 mg/dl (70-99)
--- NOTE | 2025-02-19 09:20 | PTCARENOTE ---
Patient oob ambulating this morning, denies any chest/jaw pain during the night. Watching diabetes assigned videos and aware to call me when breakfast arrives to have him inject his morning insulin.
--- NOTE | 2025-02-19 10:21 | W.PN.CARDCBS ---
Addendum entered and electronically signed by Dayanara Pruett PA-C 02/19/25 16:36:
[id number]
Addendum entered and electronically signed by Amara Barriga MD 02/19/25 16:11:
I saw and examined the patient.
The President Of [employer] [place]'s note was reviewed and I agree with the note.
Comment: Patient did well overnight and does not offer any significant complaints. He tells me that his jaw discomfort were very transient and reproducible upon palpation and he gets this occasionally at home when his ear feels full. He denies any
recurrent chest discomfort or indigestion. He has been ambulating without significant limitations.
Vital signs and labwork reviewed. On exam patient is well-appearing, no acute distress, awake, alert and oriented x 3, regular rate, normal S1 and S2, no murmurs, rubs or gallops, no significant JVD, lungs are clear to auscultation bilaterally,
abdomen is soft, nontender, nondistended with active bowel sounds, warm extremities without significant edema.
Recommendations:
1. Patient is status post an anterolateral ST elevation ND with successful PCI with 4 overlapping SCOTTY to LAD for which she will continue uninterrupted dual antiplatelet therapy with daily baby aspirin and Brilinta 90 mg twice daily.
2. In the setting of an ischemic cardiomyopathy with LVEF of 40 to 45% without presence of LV thrombus he will continue low-dose carvedilol, losartan, Aldactone and Farxiga along with high intensity statin and low-dose Lasix to maintain euvolemia
at 20 mg daily.
3. Diabetes management per primary team.
4. Outpatient referral for cardiac rehab.
5. BMP in 1 week as an outpatient with outpatient cardiology follow-up.
6. Early emphasize importance of medication adherence and follow-up to really optimize his cardiovascular risk factors.
Stable for discharge from a cardiac standpoint. Discussed with daughter at bedside.
Amara Barriga MD, [facility], [facility]
Original Note:
Today's Communication / Plan
-
plan for DC today
DC meds:
asa 81mg daily
brilinta 90mg BID
coreg 3.125mtg BID
losartan 25mg daily
aldactone 25mg daily
farxiga 10mg daily
lipitor 80mg QPM
lasix 20mg daily
meformin, novolog, lantus as per diabetic COPY CHIEF
cardiac rehab
BMP in 1 week
OP cardiac follow up arranged
Impression / Plan
-
PCP: Jimenez Dunn
Primary tester rocket engine: none, first seen by Dr Barriga this admission
Impression
Anterolateral ST elevation ND
Cardiogenic shock
Kpc-qgiynwp-bezzoynct type 2 diabetes mellitus
Hypertension
Family history CAD
Previous cardiovascular testing:
Left heart cath 02/15/2025: Severe multivessel CAD including ostium of LAD and ramus, diffuse proximal to mid distal LAD disease, severe left circumflex disease, RCA chronic total occlusions, LVEDP 23 mmHg[address] Case reviewed with [address] surgery and IABP
placed
Left heart cath 02/16/2025: PCI of ostial to mid LAD with 4 overlapping drug-eluting stents, PRAVEENA-3 flow restored into the apical LAD
Right heart cath 02/16/2025: RA 9, PA 23/15, PCWP 12, CO/CI 6.7/3.02 by Jean-Pierre calculation, SVR 878. IABP removed
Echo 02/15/2025: EF 35 to 40%, significant hypokinesis to akinesis of mid to apical anterior tidwell, anterior septum and anterior lateral tidwell including apex, normal RV size and function
Echo 02/16/2025: EF 40 to 45%, significant hypo to akinesis of the mid to apical anterior, anterolateral, and anterior septal tidwell including the apex, normal RV size and function
Plan:
- 64-year-old male gentleman with PMH rfk-nejvuor-fvxvpdvuw type 2 diabetes mellitus, hypertension, family history of premature coronary artery disease without medical follow up over last year who presented with STEMI. Found to have multivessel CAD
by cardiac catheterization 02/15/2025. There was initial consideration for surgical revascularization with CABG, but felt to be high risk for morbidity and mortality in setting of STEMI. He had recurrent chest pain and was taken back to the Cath
Lab 02/16 and underwent successful PCI of ostial to mid LAD with 4 overlapping SCOTTY. Subsequent RHC 02/16 with mildly elevated right and left filling pressures with normal cardiac output and low normal SVR. [place] removed 02/17/2025. Troponin peaked at
168 and downtrending.
- Continue aspirin, Brilinta
- Chest pain-free overnight. He did report some mild jaw pain, which was different than symptoms that brought him in. He was given sublingual nitro x 1 which just made him hypotensive and dizzy. His EKG was abnormal but stable
- Will need to consider for staged left circumflex/OM PCI. 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
- Echo showed EF 40 to 45%. No evidence of LV thrombus. Continue GDMT of cardiomyopathy including Coreg 3.125 mg twice daily, losartan 25 mg daily, spironolactone 25 mg daily, Farxiga grams daily. Could consider transition to Entresto in
outpatient setting if cost affordable and blood pressure will tolerate
- BMP pending this morning. repeat in 1 week as OP
- LDL 135. Continue Lipitor 80 mg every afternoon started this admission. Goal LDL less than 55
-Cardiac rehab
- Appreciate diabetic COPY CHIEF. Continue Lantus, NovoLog as per the recommendations
- Patient does not have a car, and is not a long a public transportation route. Therefore form was filled out for patient to hopefully qualify for assistance with transportation through [facility]. Discussed with case management
- Plan for discharge today
- Outpatient cardiac follow-up arranged for next week.
- Discussed with patient's daughter Carly via telephone and updated on all of above. Discussed with nursing
- total DC time 64 minutes
Progress Note - Solid Waste Truck Driver
Subjective
Date of Service: February 19, 2025
no CP overnight. some mild jaw pain overnight, not relieved with SL nitro.
Objective
Labs:
02/17/25 03:17
Labs
Hgb 12.6 g/dL (13.0-18.0) L 02/17/25 03:17
Hct 36.3 % (39.0-52.0) L 02/17/25 03:17
Plt Count 170 10^3/uL (130-400) 02/17/25 03:17
PT 15.3 Sec (11.4-14.6) H 02/15/25 19:09
INR 1.18 02/15/25 19:09
APTT Cancelled 02/16/25 18:15
Sodium 133 mmol/L (135-145) L 02/17/25 03:17
Potassium 3.9 mmol/L (3.5-5.1) 02/17/25 03:17
BUN 22 mg/dl (9-20) H 02/17/25 03:17
Creatinine 0.8 mg/dL (0.7-1.3) 02/17/25 03:17
Glucose 113 mg/dl (70-99) H 02/17/25 03:17
Troponins
02/16/25 02/16/25 02/16/25
08:56 13:57 15:00
Troponin I 56.500 H* 45.700 H* Cancelled
Vital Signs and I&O:
Vital Signs
Temp Pulse Resp BP Pulse Ox
97.5 F 76 15 110/69 88
02/19/25 07:59 02/19/25 08:39 02/19/25 08:02 02/19/25 08:39 02/19/25 08:00
Vital Signs
Temp Pulse Resp BP Pulse Ox
97.5 F 76 15 110/69 88
02/19/25 07:59 02/19/25 08:39 02/19/25 08:02 02/19/25 08:39 02/19/25 08:00
Intake & Output
02/17/25 02/18/25 02/19/25 02/20/25
07:59 07:59 07:59 07:59
Intake Total 765.5 / 765.5 144.5 / 144.5 640 / 640
Output Total 1350 / 1350 450 / 450
Balance -584.5 / -584.5 -305.5 / -305.5 640 / 640
Physical Exam
Physical Exam
GEN: No distress, awake, alert, oriented x3. sitting in chair
HEENT: supple, anicteric, mmm, eomi
LUNGS: CTA B/L, no wheezes/rales
CV: Reg, S1/S2, no murmur
ABD: soft, BS+, NT/ND
EXT: No cyanosis, clubbing, edema
NEURO: Gross non-focal
SKIN: Warm, pink, dry. No rash. R wrist site c/d/i.
[2025-02-19 10:25] LABS: Glucose - Point of Care 178 mg/dl (70-99)
[2025-02-19] MEDS: NOVOLOG FLEXPEN 5 UNITS SC (10:28)
[2025-02-19] MEDS: NOVOLOG FLEXPEN-LOW RESISTANCE 1 UNITS SC (10:28)
[2025-02-19] MEDS: NOVOLOG FLEXPEN SC (10:29)
--- NOTE | 2025-02-19 10:44 | W.DS.TRANS ---
DC Summary - Model Technician
-
Discharge Instructions:
Discharge Diagnosis/Procedures STEMI status post LAD stenting x4
Diet Low Cholesterol,Diabetic, Carb Controlled
Activity No strenuous activity
Additional Activity No heavy lifting greater than 10 pounds for 1
week
Driving Restrictions As prior to admission
Bathing Restrictions OK to Shower
Blood Work BMP in 1 week
Other Services Cardiac Rehab
Specialty Instructions Weigh Daily
Instructions:
Stand-Alone Forms: DC Instructions- Cath/EP Lab
Changes to Home Medications: Yes
Discharge Medications:
DC Medications w/original date entered in [employer]
blood sugar diagnostic (Contour Next Test Strips) #200 ea 02/18/25
lancets 21 gauge (Color Lancets) #200 ea 02/18/25
aspirin 81 mg chewable tablet 81 mg PO DAILY #30 tabs 02/19/25
atorvastatin 80 mg tablet 80 mg PO QPM #30 tabs 02/19/25
carvedilol 3.125 mg tablet 3.125 mg PO BID #60 tabs 02/19/25
dapagliflozin propanediol 10 mg tablet 10 mg PO DAILY #30 tabs 02/19/25
furosemide 20 mg tablet 20 mg PO DAILY #30 tabs 02/19/25
insulin glargine 100 unit/mL (3 mL) subcutaneous pen (Lantus Solostar U-100 Insulin) 15 unit (0.15 mL) SC DAILY #5 ea 02/19/25
insulin lispro 100 unit/mL subcutaneous pen (Humalog KwikPen (U-100) Insulin) 5 unit (0.05 mL) SC AC #5 ea 02/19/25
losartan 25 mg tablet 25 mg PO DAILY #30 tabs 02/19/25
metformin 500 mg tablet 500 mg PO BID@0800,1700 #60 tabs 02/19/25
nitroglycerin 0.4 mg sublingual tablet 0.4 mg sublingual [id number] PRN ANGINA #20 tabs 02/19/25
pen needle, diabetic 32 gauge x 5/32' (Meaghan Pen Needle) #200 ea 02/19/25
spironolactone 25 mg tablet 25 mg PO DAILY #30 tabs 02/19/25
brilinta 90mg tablet 90mg PO BID #60 tabs 02/19/25
Home Medication Changes
All meds are new
Pending Results: No
--- NOTE | 2025-02-19 11:20 | W.PN.HOSP.TC ---
Today's Communication/Plan
-
Dispo planning
Assessment / Plan
Assessment / Plan
64-year-old male with past medical history of type 2 diabetes presented with continuous chest pain found to have acute anterolateral ST elevation myocardial infarction taken to the [facility] for left heart cath that revealed multivessel CAD. Patient
was subsequently started on medical therapy with heparin, IV nitroglycerin, ticagrelor, and an IABP was placed. Patient currently being evaluated for potential CABG.
1. Acute Anterolateral STEMI
- Currently in CVICU; evaluation for potential CABG.
- Status post left heart cath with multivessel CAD.
- Medical management with heparin, IV nitroglycerin, ticagrelor
- ASA/high intensity statin/beta-robyn
- Goal MAP 65 mmHg
2. Hypertension
- Management per interventional cardiology
3. Hyperlipidemia
- High intensity statin
4. Type 2 Diabetes Mellitus
- HbA1c = 10.0
- Patient previously on metformin, has not taken in 6 months.
- Transition off of insulin drip in CVICU
- DC with Lantus 15 units, NovoLog 5 units, resume p.o. antihyperglycemics metformin Farxiga
- Low ISS
DVT PPx: Heparin
Diet: Cholesterol-lowering, low CHO
Code: Full
Thank you for allow me to participate in the care of this patient.
Anticipated Discharge: Today
Subjective/Interval History
-
Patient was seen at bedside this morning, reports doing well with no shortness of breath chest pain palpitations nausea vomiting fevers or chills. Patient reports that no doctor told him to check sugars previously but now understands the need to
check sugars, stated that daughter is a nurse who will be able to help him understand what he supposed to do. Also states that transportation issues that caused his missed medications are being addressed. Date of Service: February 19, 2025
Objective Data
-
Labs:
Laboratory Results
02/19/25
10:25
Sodium Pending
Potassium Pending
Chloride Pending
Carbon Dioxide Pending
BUN Pending
Creatinine Pending
Glucose Pending
Calcium Pending
Vital Signs:
Vital Signs
Temp Pulse Resp BP Pulse Ox
97.5 F 76 15 110/69 88
02/19/25 07:59 02/19/25 08:39 02/19/25 08:02 02/19/25 08:39 02/19/25 08:00
I&O
02/18/25 02/19/25 02/20/25
06:59 06:59 06:59
Intake Total 159.0 / 159.0 640 / 640
Output Total 450 / 450
Balance -291.0 / -291.0 640 / 640
Review of Systems
-
History Source: Patient
Constitutional: Denies Fever or Chills
EENT: Denies Sore Throat or Runny Nose
Respiratory: Denies Cough or Trouble Breathing
Cardiac: Denies Chest Pain or Palpitations
Abdomen/GI: Denies Abdominal Pain, Nausea or Vomiting
Genitourinary: Denies Dysuria
Neuro: Denies Dizzy or Headache
Physical Exam
-
General: Well Developed, Well Nourished, No Apparent Distress, Comfortable and Obese
HEENT: Normocephalic and Atraumatic
Respiratory: Clear to Auscultation and Non Labored Respirations; Negative Wheezes or Crackles
Cardiac: Regular Rhythm and S1/S2; Negative Murmur
GI: Soft, Nontender, Nondistended and Normal Bowel Sounds
Musculoskeletal: No Clubbing and No Edema
Skin: Warm and Dry
Neuro: Awake and Alert
[2025-02-19 11:31] LABS: Blood Urea Nitrogen 35 mg/dl (9-20); Calcium 9.9 mg/dl (8.4-10.2); Carbon Dioxide 25 mmol/L (22-30); Chloride 97 mmol/L (98-107); Estimated Creatinine Clearance 83 ml/min; Glucose 183 mg/dl (70-99); Potassium 4.5 mmol/L (3.5-5.1); Sodium 135 mmol/L (135-145); eGFR > 60.00
[2025-02-19 11:45] VITALS: BP 126/79
--- NOTE | 2025-02-19 11:46 | CM ---
Pricing on Humalog is covered with no PA on mixed 50/50 and 75/25.
Brilinta is not in stock at [facility] on [address] Order sent in yesterday, pharmacy is hopeful it is coming in today. Patient agreeable to go to [facility] on [address]. Script transferred. Confirmed it is in stock.
[2025-02-19] MEDS: HYDROCORTISONE 1% CREAM 1 APPLIC TOPICAL (11:57)
[2025-02-19] MEDS: FLUZONE (6 mos+) 2025-2026 FORMULA 0.5 ML IM (11:57)
--- NOTE | 2025-02-19 13:16 | PTCARENOTE ---
Patient was able to inject himself this morning with insulin and did well with little guidance. He is relying on his daughter who is a nurse to help him initially with his medications. Reviewed discharge instructions, follow up appointments,
medications with the patient and his daughter and they state their understanding. Patient given a scale to weigh himself daily. Patient discharged home with his daughter.
== END 2025-02-19 13:36 | disposition home or self-care (01) | DRG 270 ==
LOC: IVU 19:07
PROVIDERS: Nurse Practitioner; Physician Assistant; Physician Assistant Medical; Student in an Organized Health Care Education/Training Program; ADMITTING PHYSICIAN Student in an Organized Health Care Education/Training Program; ATTENDING PHYSICIAN Internal Medicine Interventional Cardiology; EMERGENCY PHYSICIAN Emergency Medicine; FAMILY PHYSICIAN Family Medicine; OTHER PHYSICIAN General Practice; OTHER PHYSICIAN Hospitalist
PROC: 5A02210 Assistance with Cardiac Output using Balloon Pump, Continuous (ICD-10-PCS; 2025-02-15)
PROC: B2111ZZ Fluoroscopy of Multiple Coronary Arteries using Low Osmolar Contrast (ICD-10-PCS; 2025-02-15)
PROC: 4A133J1 Monitoring of Arterial Pulse, Peripheral, Percutaneous Approach (ICD-10-PCS; 2025-02-15)
PROC: 4A023N7 Measurement of Cardiac Sampling and Pressure, Left Heart, Percutaneous Approach (ICD-10-PCS; 2025-02-15)
PROC: 03HY32Z Insertion of Monitoring Device into Upper Artery, Percutaneous Approach (ICD-10-PCS; 2025-02-15)
PROC: 4A133B1 Monitoring of Arterial Pressure, Peripheral, Percutaneous Approach (ICD-10-PCS; 2025-02-15)
PROC: 027037Z Dilation of Coronary Artery, One Artery with Four or More Drug-eluting Intraluminal Devices, Percutaneous Approach (ICD-10-PCS; 2025-02-16)
PROC: B240ZZ3 Ultrasonography of Single Coronary Artery, Intravascular (ICD-10-PCS; 2025-02-16)
PROC: 4A023N6 Measurement of Cardiac Sampling and Pressure, Right Heart, Percutaneous Approach (ICD-10-PCS; 2025-02-16)
PROC: 3E02340 Introduction of Influenza Vaccine into Muscle, Percutaneous Approach (ICD-10-PCS; 2025-02-19)
DX: I21.09 ST elevation (STEMI) myocardial infarction involving other coronary artery of anterior wall (principal); R57.0 Cardiogenic shock; E11.65 Type 2 diabetes mellitus with hyperglycemia; E78.00 Pure hypercholesterolemia, unspecified; I25.10 Atherosclerotic heart disease of native coronary artery without angina pectoris; I10 Essential (primary) hypertension; I25.5 Ischemic cardiomyopathy; E66.3 Overweight; Z60.2 Problems related to living alone; Z87.19 Personal history of other diseases of the digestive system; Z90.49 Acquired absence of other specified parts of digestive tract; Z91.041 Radiographic dye allergy status; Z80.9 Family history of malignant neoplasm, unspecified; Z84.19 Family history of other disorders of kidney and ureter; Z79.84 Long term (current) use of oral hypoglycemic drugs; Z68.30 Body mass index [BMI] 30.0-30.9, adult; Z23 Encounter for immunization; Z82.49 Family history of ischemic heart disease and other diseases of the circulatory system; Z91.141 Patient's other noncompliance with medication regimen due to financial hardship; Z79.899 Other long term (current) drug therapy
CPT/HCPCS: 33967; 71045; 80048; 80053; 80061; 80076; 82805; 82810; 82962; 83036; 83605; 83735; 84484; 85025; 85027; 85347; 85610; 85730; 86850; 86900; 86901; 90656; 92978; 93005; 93306; 93308; 93321; 93325; 93451; 93458; 96365; 96375; 99152; 99153; 99284; C1725; C1753; C1769; C1874; C1894; C9600; G0008; J0153; Q9950; Q9967

== ENCOUNTER → 2025-02-25 15:24 | Outpatient (REF) | payer OTHER, SELFPAY ==
--- NOTE | 2025-02-20 15:54 | PTCARENOTE ---
02/20/2025 DIABETES EDUCATION
I contacted patient for IP follow up conversation. I educated him on importance of PCP follow up since he is new to insulin. His current PCP is in [place], he would like a PCP in [place]. He asked me to contact his daughter, Carly at
[phone]. Carly states her father is frustrated with multiple fingersticks with glucometer. She has the Mei 3+ CGM ordered at her pharmacy, she will place on him. Her father would like to follow up with our department for a 1:1 education
session, reviewing CGM, insulin instruction and additional education. Set appt with [facility] on 02/25 at 11;45, just prior to his cardiology appt. Provided name of PCP and Endocrinology providers if desired, and recommended they to contact insurance
company to verify in network status.
--- NOTE | 2025-02-25 13:01 | PN.DE ---
Diabetes Education
- -
02/25/2025: Diabetes Education
Vitals: BP:98/60, HR 81, O2 sat 98%, Wt today was 224 lbs
Met with Mr. Gallegos and his daughter Carly today for wearable CGM sensor placement, calibration and patient training.
Pt was recently admitted in the hospital 02/15/2025-02/19/2025 with anterolateral STEMI, s/p PCI x4 to LAD on 02/16/25. His A1C was 10.1% on admission.
He was discharged home on NovoLog 5 units AC, Lantus 15 units @ HS, Farxiga 10mg daily and Metformin 500mg BID
Patient presented for his visit with 2 new stephanie plus 3 sensors and a glucose log with a range of 140-180. He was c/o a rash to his neck and left groin area that he attributes to the tape that was used on his cordis and groin while he was in the
hospital. He also c/o episodes of brain fog since discharge from the hospital. Explained to the patient that it is less likely his blood sugar based on his glucose log but more likely his blood pressure because it seems lower today than it was
before he left the hospital. Instructed patient to discuss his BP with his securities and real estate director since he was going to that appointment soon after.
Discussed and trained pt on use of stephanie plus 3 sensor. Assisted patient to create an account in the stephanie gertrudis.
Reviewed process of sensor application and identified appropriate areas of sensor placement.
Pt identified LUE back of the arm as preferred site for insertion. Prepped skin with alcohol and sensor was placed.
Reviewed use of mobile device to display glucose readings, alerts and pre-set Low or High Glucose levels for hypoglycemia or hyperglycemia awareness.
Sensor was linked to his smart phone [employer] and warm-up phase was initiated.
Discussed trend arrows that show whether glucose values are rising or falling and how fast, explained predictive alerts and how they alert the patient before reaching pre-set Low or High Glucose Alert levels.
Provided 2000 justin meal plan and reviewed event entry log for meals, exercise and insulin into the stephanie gertrudis.
pt was provided with DSME class material and was encouraged to register for the apr 2025 class.
He will contact the diabetes office should he need any further assistance with his CGM and insulin dose adjustment.
== END ==
LOC: DES 15:24
DX: E11.65 Type 2 diabetes mellitus with hyperglycemia (principal)
CPT/HCPCS: 99078